=== PATIENT | male | born 1950 | race Caucasian/White ===

== ENCOUNTER 2020-12-25 10:21 | Outpatient (REF) | payer MEDICARE, SELFPAY ==
[2020-12-25 10:25] LABS: MANUAL DIFF FLAG NO
[2020-12-25 10:30] LABS: Basophils Percent Auto 0.8 % (0-2); Eosinophils Absolute Auto 0.2 X10*3/uL (0.0-0.4); Eosinophils Percent Auto 4.4 % (0-4); Hematocrit 41.1 % (42-52); Hemoglobin 13.9 g/dl (14.0-18.0); Imm Gran Abs Auto 0.01 X10*3/uL (0.00-0.03); Imm Gran Pct Auto 0.2 % (0.0-0.4); Lymphocytes Percent Auto 39.2 % (20-40); Mean Corpuscular HGB Conc 33.8 g/dl (31.0-36.0); Mean Corpuscular Volume 94.7 fL (80-98); Mean Platelet Volume 10.3 fL (9.4-12.4); Monocytes Absolute Auto 0.8 X10*3/uL (0.1-1.2); Monocytes Percent Auto 14.6 % (2-11); Neutrophils Absolute Auto 2.1 X10*3/uL (2.0-8.3); Neutrophils Percent Auto 40.8 % (45-73); Platelet Count 253 X10*3/uL (160-400); Red Blood Count 4.34 X10*6/uL (4.60-5.80); Red Cell Distribution Width 12.8 % (11.0-16.0); White Blood Count 5.2 X10*3/uL (4.8-10.8)
[2020-12-25 10:51] LABS: Alanine Aminotransferase 15 U/L (0-40); Albumin Level 4.3 g/dL (3.5-5.0); Alkaline Phosphatase 54 U/L (39-117); Anion Gap 12 (12-20); Aspartate Amino Transferase 21 U/L (5-37); Bilirubin Total 0.4 mg/dL (0.0-1.0); Blood Urea Nitrogen 13 mg/dL (9-16); Calcium 9.2 mg/dL (8.4-10.2); Carbon Dioxide 24 mmol/L (22-29); Chloride 104 mmol/L (96-108); Cholesterol 252 mg/dL; Estimated Glomerular Filt Rate > 60; Glucose Fasting 95 mg/dL (60-99); HDL Cholesterol 81 mg/dL; LDL Cholesterol Calculated 143 mg/dl; Potassium 4.3 mmol/L (3.3-5.1); Sodium 136 mmol/L (135-145); Triglycerides 144 mg/dL
[2020-12-25 10:59] LABS: Glucose Urine UA NEG (NEG); Leukocyte Esterase Urine NEG (NEG); Nitrite Urine NEG (NEG); Urine Blood TRACE (NEG); Urine Ketones 5 MG/DL (NEG); Urine Protein NEG (NEG-TRACE)
[2020-12-25 11:12] LABS: PSA,Total (Free>4and<10) 0.53 ng/mL (0.00-4.00); TSH reflex Free T4 3.11 uIU/mL (0.32-4.0)
[2020-12-25 11:20] LABS: Appearance Urine CLEAR; Color Urine YELLOW
[2020-12-25 11:56] LABS: RBC Urine 0-2 /HPF (0); WBC Urine 0-2 /HPF (0-4)
== END 2020-12-25 10:22 | disposition home or self-care (01) ==
LOC: HO.LNP 10:21
PROVIDERS: Visit Provider Internal Medicine
DX: Z00.00 Encounter for general adult medical examination without abnormal findings (principal); Z12.5 Encounter for screening for malignant neoplasm of prostate; N40.0 Benign prostatic hyperplasia without lower urinary tract symptoms; E04.1 Nontoxic single thyroid nodule; I10 Essential (primary) hypertension
CPT/HCPCS: 80053; 80061; 81001; 81003; 84153; 84443; 85025

== ENCOUNTER 2021-01-19 12:18 | Outpatient (REF) | payer MEDICARE, SELFPAY ==
--- NOTE | ~2021-01-19 | US_ITS ---
EXAMINATION: US PELVIS LIMITED (BLADDER) CLINICAL INFORMATION: Prostatism. COMPARISON: None TECHNIQUE: Real-time imaging of the bladder. FINDINGS: BLADDER: Well distended. No mass, nodule or calculus is seen. There are mild bladder wall trabeculations. There is a prostatic impression upon the bladder base. Bilateral ureteral jets are demonstrated. Prevoid bladder volume is 172 mL. Postvoid bladder volume is 13 mL. OTHER: Prostate dimensions are 5.5 x 5.0 x 5.6 cm (volume 81.6 mL). US/US bladder IMPRESSION: 1. There is prostatomegaly. 2. There is mild urinary bladder wall hypertrophy.
== END 2021-01-19 12:19 | disposition home or self-care (01) ==
LOC: HO.US 12:18
PROVIDERS: PCP Internal Medicine; Visit Provider Internal Medicine
DX: N40.0 Benign prostatic hyperplasia without lower urinary tract symptoms (principal)
CPT/HCPCS: 76857

== ENCOUNTER → 2021-03-30 07:56 | Outpatient (REF) | payer MEDICARE, SELFPAY ==
--- NOTE | 2021-03-30 08:02 | CA_ITS ---
Acquisition Time: 2021-03-30 08:03:26 Total Exercise Time: 00:09:00 Test Indications: SOB Medications: SEE CHART Protocol: AVIS Max HR: 160 BPM 108% of Pred: 148 BPM Max BP: 192/074 mmHG Max Work Load: 10.1 METS Exercise stress test with exercise 9 min of Avis protocol, acheving 10.8 MET, 108% MPHR, with mild sob, no chest discomfort, with isolated PACs mostly at baseline and in recovery at times with trigeminy and quadrigeminy pattern, with normotensive response to exercise with max BP 192/74, which is up from baseline 138/78, without EKG changes meeting criteria for ischemia. Test reviewed with Dr Jorge. Referred By: Nader Vazquez Overread By: DEBBIE CALDERON
== END ==
LOC: HO.CARD 07:56
PROVIDERS: PCP Internal Medicine; Visit Provider Internal Medicine
DX: R06.02 Shortness of breath (principal)
CPT/HCPCS: 93017

== ENCOUNTER → 2021-04-08 14:44 | Outpatient (BNVA) | payer MEDICARE, SELFPAY | PROVIDERS: PCP Internal Medicine; Referring Provider Internal Medicine; Visit Provider Internal Medicine Cardiovascular Disease | DX: R06.02 Shortness of breath (principal); I10 Essential (primary) hypertension; Z87.891 Personal history of nicotine dependence | CPT/HCPCS: 93005; Q3014 ==

== ENCOUNTER 2022-01-01 10:49 | Outpatient (REF) | payer MEDICARE, SELFPAY ==
[2022-01-01 11:01] LABS: MANUAL DIFF FLAG NO
[2022-01-01 11:27] LABS: Basophils Percent Auto 0.5 % (0-2); Eosinophils Absolute Auto 0.3 X10*3/uL (0.0-0.4); Eosinophils Percent Auto 5.1 % (0-4); Hematocrit 40.9 % (42.0-52.0); Hemoglobin 13.5 g/dl (14.0-18.0); Imm Gran Abs Auto 0.01 X10*3/uL (0.00-0.03); Imm Gran Pct Auto 0.2 % (0.0-0.4); Lymphocytes Absolute Auto 2.1 X10*3/uL (1.2-4.9); Lymphocytes Percent Auto 38.2 % (20-40); Mean Corpuscular Hemoglobin 31.5 pg (27.0-33.0); Mean Corpuscular Volume 95.6 fL (80.0-98.0); Mean Platelet Volume 10.9 fL (9.4-12.4); Monocytes Absolute Auto 0.8 X10*3/uL (0.1-1.2); Monocytes Percent Auto 15.1 % (2-11); Neutrophils Absolute Auto 2.3 x10*3/uL (2.0-8.3); Neutrophils Percent Auto 40.9 % (45-73); Platelet Count 252 X10*3/uL (160-400); Red Blood Count 4.28 X10*6/uL (4.60-5.80); Red Cell Distribution Width 12.8 % (11.0-16.0); White Blood Count 5.5 X10*3/uL (4.8-10.8)
[2022-01-01 11:36] LABS: Appearance Urine CLEAR; Color Urine YELLOW; Glucose Urine UA NEG (NEG); Leukocyte Esterase Urine NEG (NEG); Nitrite Urine NEG (NEG); PH 6.5 (5.0-8.0); Urine Blood TRACE (NEG); Urine Ketones NEG (NEG); Urine Protein NEG (NEG-TRACE)
[2022-01-01 11:39] LABS: Alanine Aminotransferase 15 U/L (0-40); Albumin Level 4.2 g/dL (3.5-5.0); Alkaline Phosphatase 47 U/L (39-117); Anion Gap 13 (12-20); Aspartate Amino Transferase 19 U/L (5-37); Bilirubin Total 0.5 mg/dL (0.0-1.0); Blood Urea Nitrogen 20 mg/dL (9-16); Calcium 9.2 mg/dL (8.4-10.2); Carbon Dioxide 26 mmol/L (22-29); Chloride 106 mmol/L (96-108); Cholesterol 264 mg/dL; Estimated Glomerular Filt Rate > 60; Glucose Fasting 91 mg/dL (60-99); HDL Cholesterol 79 mg/dL; LDL Cholesterol Calculated 173 mg/dl; Potassium 4.5 mmol/L (3.3-5.1); Sodium 140 mmol/L (135-145); Total Protein 6.7 g/dL (6.5-8.0); Triglycerides 62 mg/dL
[2022-01-01 12:01] LABS: PSA,Total (Free>4and<10) 0.66 ng/mL (0.00-4.00)
[2022-01-01 12:11] LABS: Squamous Epithelial Cell Urine TRACE /LPF; WBC Urine 0-2 /HPF (0-4)
== END 2022-01-01 10:50 | disposition home or self-care (01) ==
LOC: HO.LNP 10:49
PROVIDERS: Visit Provider Internal Medicine
DX: Z13.89 Encounter for screening for other disorder (principal)
CPT/HCPCS: 80053; 80061; 81001; 84153; 85025

== ENCOUNTER 2022-01-08 13:37 | Outpatient (REF) | payer MEDICARE, SELFPAY ==
[2022-01-08 13:50] LABS: Appearance Urine CLEAR; Color Urine YELLOW; Glucose Urine UA NEG (NEG); Leukocyte Esterase Urine NEG (NEG); Nitrite Urine NEG (NEG); PH 5.5 (5.0-8.0); Specific Gravity - Urine 1.025 (1.005-1.025); Urine Blood TRACE (NEG); Urine Ketones NEG (NEG); Urine Protein NEG (NEG-TRACE)
[2022-01-08 14:16] LABS: RBC Urine 0-2 /HPF (0); WBC Urine 0 /HPF (0-4)
== END 2022-01-08 13:38 | disposition home or self-care (01) ==
LOC: HO.LNP 13:37
PROVIDERS: Visit Provider Internal Medicine
DX: R31.9 Hematuria, unspecified (principal)
CPT/HCPCS: 81001

== ENCOUNTER 2022-03-29 13:24 | Outpatient (REF) | payer MEDICARE, SELFPAY ==
--- NOTE | ~2022-03-29 | US_ITS ---
EXAMINATION: US EXTRACRANIAL CAROTID DUPLEX, BILATERAL CLINICAL INFORMATION: This is a 72-year-old male with carotid artery disease. COMPARISON: Comparison is made to a previous study dated 02/19/2020 which demonstrated bilateral 0-49% internal carotid artery stenoses. TECHNIQUE: Real-time ultrasound and Doppler techniques (integrating B-mode 2-D vascular images, Doppler spectral analysis and color-flow Doppler imaging) were utilized to interrogate the extracranial carotid arteries, the vertebral arteries and proximal subclavian arteries bilaterally. The degree of stenosis is determined by criteria similar to NASCET. FINDINGS: Right Side: 1. There is minimal atherosclerotic plaque seen in the bifurcation/proximal ICA region. 2. The common carotid artery PSV proximally is 132 cm/s and distally 106 cm/s. 3. The proximal internal carotid artery velocities are 100 cm/s systolic and 23 cm/s diastolic. 4. The proximal external carotid artery PSV is 95 cm/s. 5. The vertebral artery shows antegrade flow. 6. The subclavian artery waveforms are normal. Left Side: 1. There is minimal atherosclerotic plaque seen in the bifurcation/proximal ICA region. 2. The common carotid artery PSV proximally is 135 cm/s and distally 119 cm/s. 3. The proximal internal carotid artery velocities are 100 cm/s systolic and 35 cm/s diastolic. 4. The proximal external carotid artery PSV is 97 cm/s. 5. The vertebral artery shows antegrade flow. 6. The subclavian artery waveforms are normal. US/US carotid duplex BI IMPRESSION: 1. RIGHT: Minimal, non-hemodynamically significant stenosis of the proximal right internal carotid artery corresponding to a 0-49% stenosis by velocity criteria. 2. LEFT: Minimal, non-hemodynamically significant stenosis of the proximal left internal carotid artery corresponding to a 0-49% stenosis by velocity criteria. 3. Incidental note is made of bilateral thyroid nodules. A dedicated thyroid ultrasound is recommended and this can be compared to the previous study from 02/19/2020. 4. There is no change in the category severity of disease when compared to the previous study dated 02/19/2020.
== END 2022-03-29 13:25 | disposition home or self-care (01) ==
LOC: HO.US 13:24
PROVIDERS: PCP Internal Medicine; Visit Provider Internal Medicine
DX: I65.23 Occlusion and stenosis of bilateral carotid arteries (principal)
CPT/HCPCS: 93880

== ENCOUNTER 2022-05-10 15:18 | Outpatient (REF) | payer MEDICARE, SELFPAY ==
--- NOTE | ~2022-05-10 | US_ITS ---
EXAMINATION: US THYROID CLINICAL INFORMATION: Thyroid nodule. COMPARISON: Thyroid ultrasound 02/19/2020. TECHNIQUE: Linear transducer grayscale and color Doppler examination with attention to the region of the thyroid. FINDINGS: SIZE: Measurements of the thyroid lobes and nodules are given in sagittal, anteroposterior and transverse dimensions respectively. Right Thyroid Lobe: 5.2 x 1.6 x 1.7 cm, volume 7.4 mL. Previously 5.2 x 1.8 x 1.6 cm, volume 7.8 mL. Parenchyma: The gland echotexture is homogeneous. Thyroid vascularity is increased. Left Thyroid Lobe: 4.7 x 1.6 x 1.6 cm, volume 6.3 mL. Previously 4.5 x 2.3 x 1.8 cm, volume 9.7 mL. Parenchyma: The gland echotexture is homogeneous. Thyroid vascularity is increased. Isthmus: 0.3 cm in maximum AP dimension. Previously 0.4 cm. Estimated total number of nodules greater than or equal to 1 cm: 1. Foot Tender nodules are described as follows: 1. Location: Right mid pole. Size: 0.5 x 0.4 x 0.5 cm, volume 0.06 mL. Previously: 0.6 x 0.5 x 0.6 cm, volume 0.09 mL. Nodule characteristics: Composition: Cystic(0). ACR TI-RADS total points: 0 ACR TI-RADS category: 1 Significant change in size (>/= 20% in 2 dimensions and minimal increase of 2 mm or 50% or greater increase in volume): None Change in features: None Change in ACR TI-RADS risk category: Not applicable. 2. Location: Right mid pole. Size: 0.4 x 0.3 x 0.3 cm, volume 0.02 mL. Previously: 0.3 x 0.3 x 0.3 cm, volume 0.01 mL. Nodule characteristics: Composition: Mixed cystic and solid (1). Echogenicity: Isoechoic (1). Shape: Not taller than wide (0). Margins: Smooth (0). Echogenic Foci: Comet-tail artifacts (0). ACR TI-RADS total points: 2 ACR TI-RADS category: 2 Significant change in size (>/= 20% in 2 dimensions and minimal increase of 2 mm or 50% or greater increase in volume): None Change in features: None Change in ACR TI-RADS risk category: Not applicable. 3. Location: Right lower pole. Size: 1.1 x 0.7 x 0.9 cm, volume 0.3 mL. Previously: 0.9 x 0.8 x 0.6 cm, volume 0.2 mL. Nodule characteristics: Composition: Solid/almost completely solid (2). Echogenicity: Isoechoic (1). Shape: Not taller than wide (0). Margins: Ill-defined (0). Echogenic Foci: Macrocalcifications (1). None ACR TI-RADS total points: 4 ACR TI-RADS category: 4 Significant change in size (>/= 20% in 2 dimensions and minimal increase of 2 mm or 50% or greater increase in volume): None Change in features: None Change in ACR TI-RADS risk category: Not applicable. 4. Location: Left lower pole. Size: 0.6 x 0.4 x 0.4 cm, volume 0.06 mL. Previously: Not documented, new. Nodule characteristics: Composition: Solid (2). Echogenicity: Isoechoic (1). Shape: Not taller than wide (0). Margins: Ill-defined (0). Echogenic Foci: None (0). ACR TI-RADS total points: 3 ACR TI-RADS category: 3 Significant change in size (>/= 20% in 2 dimensions and minimal increase of 2 mm or 50% or greater increase in volume): None Change in features: None Change in ACR TI-RADS risk category: Not applicable. NODES: No lymphadenopathy is seen in the tissue surrounding the thyroid gland. US/US thyroid IMPRESSION: 1. Slightly hypervascular nonenlarged thyroid gland. 2. Subcentimeter nonsuspicious thyroid nodules. 3. TR1 (0 point) and TR 2 (2 points): 4. TR4 (4-6 points): FNA if more than or equal to 1.5 cm in maximum dimension, followup ultrasound in 1, 2, 3 and 5 years if 1 to 1.4 cm in maximum dimension. 5. TR5 (more than or equal to 7 points): FNA if more than or equal to 1 cm in maximum dimension, followup ultrasound every year for 5 years if 0.5 to 0.9 cm in maximum dimension.
== END 2022-05-10 15:19 | disposition home or self-care (01) ==
LOC: HO.US 15:18
PROVIDERS: Visit Provider Internal Medicine
DX: E04.1 Nontoxic single thyroid nodule (principal)
CPT/HCPCS: 76536

== ENCOUNTER 2022-05-21 11:57 | Outpatient (REF) | payer MEDICARE, SELFPAY ==
[2022-05-21 12:47] LABS: Alanine Aminotransferase 15 U/L (0-40); Albumin Level 4.2 g/dL (3.5-5.0); Alkaline Phosphatase 47 U/L (39-117); Aspartate Amino Transferase 20 U/L (5-37); Bilirubin Direct 0.3 mg/dL (0.0-0.5); Bilirubin Total 0.7 mg/dL (0.0-1.0); Cholesterol 166 mg/dL; HDL Cholesterol 88 mg/dL; LDL Cholesterol Calculated 69 mg/dl; Total Protein 6.5 g/dL (6.5-8.0); Triglycerides 45 mg/dL
[2022-05-21 13:52] LABS: Reflex LDLD? No
== END 2022-05-21 11:58 | disposition home or self-care (01) ==
LOC: HO.LNP 11:57
PROVIDERS: Visit Provider Internal Medicine
DX: E78.00 Pure hypercholesterolemia, unspecified (principal)
CPT/HCPCS: 80061; 80076

== ENCOUNTER 2023-02-17 10:46 | Outpatient (REF) | payer MEDICARE, SELFPAY ==
[2023-02-17 10:52] LABS: MANUAL DIFF FLAG NO
[2023-02-17 11:16] LABS: Appearance Urine Clear; Color Urine Yellow; Glucose Urine UA Negative (Negative); Leukocyte Esterase Urine Negative (Negative); Nitrite Urine Negative (Negative); Urine Blood Negative (Negative); Urine Ketones Negative (Negative); Urine Protein Negative (Neg-Trace)
[2023-02-17 11:19] LABS: Bacteria Urine None Seen (None Seen); Hyaline Casts Urine 0-2 /LPF (0-2); RBC Urine 0-2 /HPF (0-2); Squamous Epithelial Cell Urine 0-2 /HPF (0-2); WBC Urine 0-5 /HPF (0-5)
[2023-02-17 12:04] LABS: Basophils Percent Auto 0.8 % (0-2); Eosinophils Absolute Auto 0.3 X10*3/uL (0.0-0.4); Eosinophils Percent Auto 5.7 % (0-4); Hematocrit 42.4 % (42.0-52.0); Hemoglobin 14.1 g/dl (14.0-18.0); Imm Gran Abs Auto 0.01 X10*3/uL (0.00-0.03); Imm Gran Pct Auto 0.2 % (0.0-0.4); Lymphocytes Absolute Auto 1.5 X10*3/uL (1.2-4.9); Lymphocytes Percent Auto 30.1 % (20-40); Mean Corpuscular HGB Conc 33.3 g/dl (31.0-36.0); Mean Corpuscular Volume 96.1 fL (80.0-98.0); Mean Platelet Volume 10.8 fL (9.4-12.4); Monocytes Absolute Auto 0.6 X10*3/uL (0.1-1.2); Monocytes Percent Auto 12.3 % (2-11); Neutrophils Absolute Auto 2.6 x10*3/uL (2.0-8.3); Neutrophils Percent Auto 50.9 % (45-73); Platelet Count 272 X10*3/uL (160-400); Red Blood Count 4.41 X10*6/uL (4.60-5.80); Red Cell Distribution Width 12.6 % (11.0-16.0); White Blood Count 5.1 X10*3/uL (4.8-10.8)
[2023-02-17 12:12] LABS: Alanine Aminotransferase 16 U/L (0-40); Albumin Level 4.5 g/dL (3.5-5.0); Alkaline Phosphatase 42 U/L (39-117); Anion Gap 13 (12-20); Aspartate Amino Transferase 21 U/L (5-37); Bilirubin Total 0.6 mg/dL (0.0-1.0); Blood Urea Nitrogen 20 mg/dL (9-16); Calcium 9.6 mg/dL (8.4-10.2); Carbon Dioxide 25 mmol/L (22-29); Chloride 106 mmol/L (96-108); Cholesterol 184 mg/dL (<200); Estimated Glomerular Filt Rate > 60; Glucose Fasting 93 mg/dL (60-99); HDL Cholesterol 96 mg/dL (>40); LDL Cholesterol Calculated 76 mg/dL (<100); Potassium 4.8 mmol/L (3.3-5.1); Sodium 139 mmol/L (135-145); Total Protein 7.3 g/dL (6.5-8.0); Triglycerides 60 mg/dL (<150)
[2023-02-17 12:23] LABS: PSA,Total (Free>4and<10) 0.65 ng/mL (0.00-4.00)
== END 2023-02-17 10:47 | disposition home or self-care (01) ==
LOC: HO.LNP 10:46
PROVIDERS: Visit Provider Internal Medicine
DX: Z00.00 Encounter for general adult medical examination without abnormal findings (principal); I10 Essential (primary) hypertension; N40.0 Benign prostatic hyperplasia without lower urinary tract symptoms; E78.00 Pure hypercholesterolemia, unspecified; Z12.5 Encounter for screening for malignant neoplasm of prostate
CPT/HCPCS: 80053; 80061; 81001; 84153; 85025

== ENCOUNTER 2023-05-16 07:52 | Outpatient (REF) | payer MEDICARE, SELFPAY ==
--- NOTE | ~2023-05-16 | US_ITS ---
EXAMINATION: US THYROID CLINICAL INFORMATION: Thyroid nodule. COMPARISON: Thyroid ultrasound 05/10/2022 and 02/19/2020. TECHNIQUE: Linear transducer banerjee-scale and color Doppler examination with attention to the region of the thyroid. FINDINGS: SIZE: Measurements of the thyroid lobes and nodules are given in sagittal, anteroposterior and transverse dimensions, respectively. Right Thyroid Lobe: 5.4 x 1.9 x 1.4 cm, volume 7.4 mL. Previously 5.2 x 1.6 x 1.7 cm, volume 7.4 mL. Parenchyma: The gland echotexture is homogeneous. Thyroid vascularity is normal. Left Thyroid Lobe: 4.6 x 2.4 x 1.6 cm, volume 9.0 mL. Previously 4.7 x 1.6 x 1.6 cm, volume 6.3 mL. Parenchyma: The gland echotexture is homogeneous. Thyroid vascularity is normal. Isthmus: 0.3 cm in maximum AP dimension. Previously 0.3 cm. Estimated total number of nodules greater than or equal to 1 cm: 1. Hopper Operator nodules are described as follows: 1. Location: Right mid. Size: 0.6 x 0.5 x 0.3 cm, volume 0.05 mL. Previously: 0.5 x 0.4 x 0.5 cm, volume 0.06 mL. Nodule characteristics: Composition: Mixed cystic and solid (1). Echogenicity: Hypoechoic (2). Shape: Not taller than wide (0). Margins: Smooth (0). Echogenic Foci: None (0). ACR TI-RADS total points: 3. Previous: 0. ACR TI-RADS category: 3. Previous: 1. Significant change in size (>/= 20% in 2 dimensions and minimal increase of 2 mm or 50% or greater increase in volume): No. Change in features: Yes. Change in ACR TI-RADS risk category: Yes. 2. Location: Right mid. Size: 0.3 x 0.2 x 0.2 cm, volume 0.01 mL. Previously: 0.4 x 0.3 x 0.3 cm, volume 0.02 mL. Nodule characteristics: Composition: Cystic(0). ACR TI-RADS total points: 0. Previous: 2. ACR TI-RADS category: 1. Previous: 2. Significant change in size (>/= 20% in 2 dimensions and minimal increase of 2 mm or 50% or greater increase in volume): No. Change in features: No. Change in ACR TI-RADS risk category: No. 3. Location: Right inferior. Size: 0.5 x 0.3 x 0.4 cm, volume 0.03 mL. Previously: New since the previous study. Nodule characteristics: Composition: Cystic(0). ACR TI-RADS total points: 0. ACR TI-RADS category: 1. 4. Location: Right inferior. Size: 1.3 x 0.9 x 0.8 cm, volume 0.5 mL. Previously: 1.1 x 0.7 x 0.9 cm, volume 0.3 mL. Nodule characteristics: Composition: Solid/almost completely solid (2). Echogenicity: Isoechoic (1). Shape: Not taller than wide (0). Margins: Smooth (0). Echogenic Foci: None (0). ACR TI-RADS total points: 3. Previous: 3. ACR TI-RADS category: 3. Previous: 3. Significant change in size (>/= 20% in 2 dimensions and minimal increase of 2 mm or 50% or greater increase in volume): Yes. Change in features: No. Change in ACR TI-RADS risk category: No. 5. Location: Left inferior. Size: 0.7 x 0.5 x 0.7 cm, volume 0.1 mL. Previously: 0.6 x 0.4 x 0.4 cm, volume 0.06 mL. Nodule characteristics: Composition: Solid (2). Echogenicity: Isoechoic (1). Shape: Not taller than wide (0). Margins: Ill-defined (0). Echogenic Foci: None (0). ACR TI-RADS total points: 3. Previous: 3. ACR TI-RADS category: 3. Previous: 3. Significant change in size (>/= 20% in 2 dimensions and minimal increase of 2 mm or 50% or greater increase in volume): No. Change in features: No. Change in ACR TI-RADS risk category: No. NODES: No lymphadenopathy is seen in the tissue surrounding the thyroid gland. US/US thyroid IMPRESSION: There is only a single nodule over a centimeter in size which is a 1.3 cm TR Class III nodule. According to ACR TI-RADS criteria, no follow-up should be necessary. ACR TI-RADS RECOMMENDATION REFERENCE: Ultrasound-guided fine-needle aspiration, follow up ultrasound, no further followup. * TR1 (0 point) and TR2 (2 points): No FNA or followup * TR3 (3 points): FNA if more than or equal to 2.5 cm in maximum dimension, follow up ultrasound in 1, 3 and 5 years if 1.5 to 2.4 cm in maximum dimension. * TR4 (4-6 points): FNA if more than or equal to 1.5 cm in maximum dimension, follow up ultrasound in 1, 2, 3 and 5 years if 1 to 1.4 cm in maximum dimension. * TR5 (more than or equal to 7 points): FNA if more than or equal to 1 cm in maximum dimension, follow up ultrasound every year for 5 years if 0.5 to 0.9 cm in maximum dimension. * TR3, TR4 or TR5 nodules that are below the size threshold for follow up receive no followup.
== END 2023-05-16 07:53 | disposition home or self-care (01) ==
LOC: HO.US 07:52
PROVIDERS: PCP Internal Medicine; Visit Provider Internal Medicine
DX: E04.1 Nontoxic single thyroid nodule (principal)
CPT/HCPCS: 76536

== ENCOUNTER 2023-08-26 11:28 | Outpatient (REF) | payer MEDICARE, SELFPAY ==
[2023-08-26 12:29] LABS: Alanine Aminotransferase 20 U/L (0-40); Albumin Level 4.3 g/dL (3.5-5.0); Alkaline Phosphatase 52 U/L (39-117); Aspartate Amino Transferase 21 U/L (5-37); Bilirubin Direct 0.2 mg/dL (0.0-0.5); Bilirubin Total 0.5 mg/dL (0.0-1.0); Cholesterol 173 mg/dL (<200); HDL Cholesterol 91 mg/dL (>40); LDL Cholesterol Calculated 71 mg/dL (<100); Total Protein 7.1 g/dL (6.5-8.0); Triglycerides 55 mg/dL (<150)
[2023-08-26 12:35] LABS: Reflex LDLD? No
== END 2023-08-26 11:29 | disposition home or self-care (01) ==
LOC: HO.LNP 11:28
PROVIDERS: Visit Provider Internal Medicine
DX: E78.00 Pure hypercholesterolemia, unspecified (principal)
CPT/HCPCS: 80061; 80076

== ENCOUNTER 2024-02-20 10:31 | Outpatient (REF) | payer MEDICARE, SELFPAY ==
[2024-02-20 10:40] LABS: MANUAL DIFF FLAG NO
[2024-02-20 11:03] LABS: Basophils Percent Auto 0.5 % (0-2); Eosinophils Absolute Auto 0.4 X10*3/uL (0.0-0.4); Eosinophils Percent Auto 6.7 % (0-4); Hematocrit 40.7 % (42.0-52.0); Hemoglobin 13.7 g/dl (14.0-18.0); Imm Gran Abs Auto 0.02 X10*3/uL (0.00-0.03); Imm Gran Pct Auto 0.3 % (0.0-0.4); Lymphocytes Absolute Auto 1.5 X10*3/uL (1.2-4.9); Lymphocytes Percent Auto 23.3 % (20-40); Mean Corpuscular HGB Conc 33.7 g/dl (31.0-36.0); Mean Corpuscular Hemoglobin 32.6 pg (27.0-33.0); Mean Corpuscular Volume 96.9 fL (80.0-98.0); Mean Platelet Volume 10.6 fL (9.4-12.4); Monocytes Absolute Auto 0.8 X10*3/uL (0.1-1.2); Monocytes Percent Auto 12.1 % (2-11); Neutrophils Absolute Auto 3.8 x10*3/uL (2.0-8.3); Neutrophils Percent Auto 57.1 % (45-73); Platelet Count 263 X10*3/uL (160-400); Red Cell Distribution Width 12.6 % (11.0-16.0); White Blood Count 6.6 X10*3/uL (4.8-10.8)
[2024-02-20 11:05] LABS: Appearance Urine Clear; Color Urine Yellow; Glucose Urine UA Negative (Negative); Leukocyte Esterase Urine Negative (Negative); Nitrite Urine Negative (Negative); PH 5.5 (5.0-9.0); Urine Blood Negative (Negative); Urine Ketones Negative (Negative); Urine Protein Negative (Neg-Trace)
[2024-02-20 11:08] LABS: Bacteria Urine None Seen (None Seen); Hyaline Casts Urine 0-2 /LPF (0-2); RBC Urine 0-2 /HPF (0-2); Squamous Epithelial Cell Urine 0-2 /HPF (0-2); WBC Urine 0-5 /HPF (0-5)
[2024-02-20 11:11] LABS: Alanine Aminotransferase 15 U/L (0-40); Albumin Level 4.1 g/dL (3.5-5.0); Alkaline Phosphatase 40 U/L (39-117); Anion Gap 12 (12-20); Aspartate Amino Transferase 18 U/L (5-37); Bilirubin Total 0.7 mg/dL (0.0-1.0); Blood Urea Nitrogen 24 mg/dL (9-16); Carbon Dioxide 24 mmol/L (22-29); Chloride 107 mmol/L (96-108); Cholesterol 181 mg/dL (<200); Estimated Glomerular Filt Rate > 60; Glucose Fasting 109 mg/dL (60-99); HDL Cholesterol 87 mg/dL (>40); LDL Cholesterol Calculated 79 mg/dL (<100); Potassium 4.1 mmol/L (3.3-5.1); Sodium 139 mmol/L (135-145); Total Protein 6.8 g/dL (6.5-8.0); Triglycerides 76 mg/dL (<150)
[2024-02-20 11:32] LABS: PSA,Total (Free>4and<10) 0.52 ng/mL (0.00-4.00)
== END 2024-02-20 10:32 | disposition home or self-care (01) ==
LOC: HO.LNP 10:31
PROVIDERS: Visit Provider Internal Medicine
DX: Z00.00 Encounter for general adult medical examination without abnormal findings (principal); I10 Essential (primary) hypertension; E78.00 Pure hypercholesterolemia, unspecified; Z12.5 Encounter for screening for malignant neoplasm of prostate
CPT/HCPCS: 80053; 80061; 81001; 84153; 85025

== ENCOUNTER 2024-08-17 11:35 | Outpatient (REF) | payer MEDICARE, SELFPAY ==
[2024-08-17 12:26] LABS: Alanine Aminotransferase 18 U/L (0-40); Albumin Level 4.2 g/dL (3.5-5.0); Alkaline Phosphatase 43 U/L (39-117); Aspartate Amino Transferase 24 U/L (5-37); Bilirubin Direct 0.2 mg/dL (0.0-0.5); Bilirubin Total 0.6 mg/dL (0.0-1.0); Cholesterol 165 mg/dL (<200); HDL Cholesterol 80 mg/dL (>40); LDL Cholesterol Calculated 73 mg/dL (<100); Total Protein 7.1 g/dL (6.5-8.0); Triglycerides 62 mg/dL (<150)
[2024-08-17 14:46] LABS: Reflex LDLD? No
== END 2024-08-17 11:36 | disposition home or self-care (01) ==
LOC: HO.LNP 11:35
PROVIDERS: Visit Provider Internal Medicine
DX: E78.00 Pure hypercholesterolemia, unspecified (principal)
CPT/HCPCS: 80061; 80076

== ENCOUNTER → 2024-10-11 07:45 | Outpatient (REF) | payer MEDICARE, SELFPAY ==
--- NOTE | 2024-10-11 07:48 | CA_ITS ---
Transthoracic Echocardiogram Patient (Last, First, Middle): Chaz Aguirre Carl Gender: Male Date of : 1950 Age: 74 Procedure Date: 10/11/2024 Procedure Type: Transthoracic Echocardiogram Location: OP Height: 167.64 cm Weight: 72.58 kg BSA: 1.82 m2 Heart Rate: bpm BP: 150 / 84 mmHg Incident Coordinator: TO Referring MD: Nader Vazquez MD Water Aerobics Instructor: Jake Jorge MD Symptoms: R01.1 MURMUR Study Quality: Adequate ECG Rhythm: Sinus Conclusions: - 1. Normal LV ejection fraction 55-60% with impaired relaxation filling pattern 2. Mild calcification and thickening of the aortic valve with mild mitral regurgitation 3. Normal RV systolic pressure 4. No gross pericardial effusion Findings Left Ventricle Normal left ventricular size, thickness, and systolic function. The visually estimated ejection fraction is between 55-60%. Spectral Doppler is indicative of an impaired relaxation filling pattern. Right Ventricle Normal right ventricular cavity size and systolic function. Atria The left atrium is likely dilated. There is no evidence of interatrial shunt. The right atrium is normal in size. Aortic Valve There is mild calcification of the aortic valve. There is mild thickening of the aortic valve. There is no aortic valve stenosis. There is no aortic valve regurgitation. Mitral Valve There is mild anterior and posterior mitral leaflet thickening. There is mild mitral valve regurgitation. There is no mitral valve stenosis. Pulmonic Valve The pulmonic valve is likely normal. There is trace pulmonic valve regurgitation. Tricuspid Valve Normal tricuspid valve structure. There is mild tricuspid valve regurgitation. The right ventricular systolic pressure is normal. The right ventricular systolic pressure is 25 mmHg. Normal right atrial pressure. There is no evidence of pulmonary hypertension. Great Vessels The pulmonary artery was not well visualized. There is mild dilatation of the ascending aorta measuring 3.80 cm. Venous The inferior vena cava is normal in size and collapses greater than 50% with inspiration. Pericardium/Pleural There is no evidence of pericardial effusion. Prior Study Comparison No prior study available for comparison. Measurements 2D Linear Measurements IVSd: 1.06 0.6-0.9/0.6-1.0 cm LVIDd: 4.56 3.9-5.3/4.2-5.9 cm LVIDd Index: 2.51 2.4-3.2/2.2-3.1 cm/m2 LVIDs: 2.93 2.0-3.6 cm LVPWd: 0.81 0.7-1.1 cm LA Diam: 4.10 2.7-3.8/3.0-4.0 cm LAIDs Index: 2.25 1.5-2.3 cm/m2 LV Mass: 178.26 67-162/88-224 g LV Mass Index: 97.94 43-95/49-115 g/m2 LVOT Diam: 2.30 3.0+(-)1.3 cm 2D Systolic Function EF 4C: 61.30 >55% EF 2C: 54.80 >55% EF BiP: 57.20 >55% Mitral Valve MV Pk E: 0.59 MV PK A: 0.54 MV Decel Time: 153.00 E/A: 1.10 E'Lateral: 8.16 E'Medial: 5.66 E/E' Med: 10.40 E/E' Lat: 7.20 PHT: 45.00 MVA PHT: 4.89 Decel Imperial: 3.85 Aortic Valve AoV Pk Carlos: 1.54 AoV Mn Carlos: 1.10 AoV VTI: 0.37 AoV Pk Grad: 9.00 Aov Mn Grad: 5.00 JAZZMINE Cont.VTI: 2.78 LVOT LVOT Pk Carlos: 1.12 LVOT Mn Carlos: 0.72 LVOT VTI: 0.25 LVOT Pk Grad: 5.00 LVOT Mn Grad: 2.00 LVOT Diam: 2.30 LVOT Area: 4.15 Diastolic Function MV Pk E: 0.59 MV Pk A: 0.54 E/A: 1.10 E'Medial: 5.66 E/E' Med: 10.40 E' Laterial: 8.16 E/E' Lat: 7.20 Right Ventricle TAPSE (mm): 29.30 TVS' Carlos: 13.20 Tricuspid Valve TR Pk Carlos: 2.33 TR Pk Grad: 22.00 RA Press: 3.00 RVSP: 25.00 Great Vessels Aorta Sinus of Valsalva: 3.67 2.0-3.[address] Ridge: 3.03 1.7-3.4 cm Ao Asc: 3.80 2.1-3.4 cm Updated in Other Vendor System with Status of Final Jake Jorge MD electronically signed on 10/11/2024 6:31:51 PM with status of Final
--- OUTSIDE RECORDS SUMMARY | 2024-10-11 07:48 | XMS_ITS | Patient Health Record ---
Author Organization Nader Vazquez MD Address [address] [place], [place] [phone] Care Team Providers Care New Home Sales Consultant Name Role Phone Nader Vazquez Primary Care Provider [phone] Allergies Allergen (clinical drug ingredient) Drug/Non Drug Allergy documented on EMR Reaction Allergy Type Onset Date Status High Dose Flu shot (uncoded) throat swelling Allergy Active Results Component Value Reference Range Notes Complete Blood Count Auto Di ff Reviewed date:02/20/2024 12:42:25 PM Interpretation: Performing Lab:[facility], [address] [place] [phone] Notes/Report: White Blood Count 6.6 4.8-10.8 X10*3/uL Red Blood Count 4.20 4.60-5.80 X10*6/uL Hemoglobin 13.7 14.0-18.0 g/dl Hematocrit 40.7 42.0-52.0 % Mean Corpuscular Volume 96.9 80.0-98.0 fL Mean Corpuscular Hemoglobin 32.6 27.0-33.0 pg Mean Corpuscular HGB Conc 33.7 31.0-36.0 g/dl Red Cell Distribution Width 12.6 11.0-16.0 % Platelet Count 263 160-400 X10*3/uL Mean Platelet Volume 10.6 9.4-12.4 fL Neutrophils Percent Auto 57.1 45-73 % Imm Gran Pct Auto 0.3 0.0-0.4 % Lymphocytes Percent Auto 23.3 20-40 % Monocytes Percent Auto 12.1 2-11 % Eosinophils Percent Auto 6.7 0-4 % Basophils Percent Auto 0.5 0-2 % NRBC Pct Auto 0.0 0.0-0.2 /100WBC Neutrophils Absolute Auto 3.8 2.0-8.3 x10*3/u L Imm Gran Abs Auto 0.02 0.00-0.03 X10*3/uL Lymphocytes Absolute Auto 1.5 1.2-4.9 X10*3/u L Monocytes Absolute Auto 0.8 0.1-1.2 X10*3/uL Eosinophils Absolute Auto 0.4 0.0-0.4 X10*3/u L Basophils Absolute Auto 0.0 0.0-0.2 X10*3/uL NRBC Abs Auto 0.000 0.0-0.012 X10*3/uL Comprehensive Santa. Panel Fa Reviewed date:02/20/2024 12:43:45 PM Interpretation: Performing Lab:[facility], [address] [place] [phone] Notes/Report: Sodium 139 135-145 mmol/L Potassium 4.1 3.3-5.1 mmol/L Chloride 107 96-108 mmol/L Carbon Dioxide 24 22-29 mmol/L Anion Gap 12 12-20 Blood Urea Nitrogen 24 9-16 mg/dL Creatinine 0.97 0.5-1.4 mg/dL Estimated Glomerular Filt Rate > 60 NOTE: For -Martiniquais individuals, multiply the result by 1.210. Chronic Kidney Disease: Estimated GFR < 60 mL/min/1.73m2 Severe Kidney Disease: Estimated GFR < 15 mL/min/1.73m2 Glucose Fasting 109 60-99 mg/dL A fasting glucose from 100-125 mg/dl is considered impaired (pre-diabetes). Calcium 9.0 8.4-10.2 mg/dL Bilirubin Total 0.7 0.0-1.0 mg/dL Aspartate Amino Transferase 18 5-37 U/L Alanine Aminotransferase 15 0-40 U/L Total Protein 6.8 6.5-8.0 g/dL Albumin Level 4.1 3.5-5.0 g/dL Alkaline Phosphatase 40 39-117 U/L Lipid Panel Reviewed date:02/20/2024 12:33:59 PM Interpretation: Performing Lab:[facility], [address] [place] [phone] Notes/Report: Triglycerides 76 <150 mg/dL Desirable Triglyceride: less than 150 mg/dL Borderline High Triglyceride 150-199 mg/dL High Triglyceride: 200-499 mg/dL Very High Triglyceride: greater than or equal to 5OO mg/dL Cholesterol 181 <200 mg/dL Desirable Cholesterol: less than 200 mg/dL Borderline High Cholesterol: 200-239 mg/dL High Cholesterol: greater than 239 mg/dL LDL Cholesterol Calculated 79 <100 mg/dL Desirable LDL: less than 100 mg/dL Near Optimal/Above Optimal LDL: 110-129 mg/dL Borderline High LDL: 130-159 mg/dL High LDL: 160-189 mg/dL Very High LDL: greater than or equal to 190 mg/dL HDL Cholesterol 87 >40 mg/dL Desirable HDL: greater than 40 mg/dL Note: This HDL assay may give artificially low results in patients with liver disease. PSA,Total (Free>4and<10) Reviewed date:02/20/2024 12:34:08 PM Interpretation: Performing Lab:[facility], [address] [place] [phone] Notes/Report: PSA,Total (Free>4and<10) 0.52 0.00-4.00 ng/mL A Free PSA was not performed: The percentage of Free PSA can be used to enhance the differentiation of prostate cancer from benign prostatic disease in subjects whose PSA levels are between 4.0 and 10.0 ng/mL. For subjects whose PSA levels are below 4.0 or above 10.0 ng/mL, the risk of prostate cancer is determined on the basis of the PSA alone. Therefore the % Free PSA is recommended only for those subjects whose PSA levels are between 4.0 and 10.0 ng/mL. PSA methodology: Swift Alinity i Chemiluminescent Microparticle Immunoassay (CMIA) UA ClnCatch+Micro w/rflx Cul t Reviewed date:02/20/2024 12:44:56 PM Interpretation: Performing Lab:[facility], [address] [place] [phone] Notes/Report: Urine, Clean Catch Color Urine Yellow Appearance Urine Clear PH 5.5 5.0-9.0 Glucose Urine UA Negative Negative mg/dL Urine Blood Negative Negative Specific Acworth - Urine 1.020 1.005-1.025 Urine Protein Negative Neg-Trace mg/dL Urine Ketones Negative Negative mg/dL Nitrite Urine Negative Negative Leukocyte Esterase Urine Negative Negative RBC Urine 0-2 0-2 /HPF WBC Urine 0-5 0-5 /HPF Squamous Epithelial Cell Urine 0-2 0-2 /HPF Bacteria Urine None Seen None Seen Hyaline Casts Urine 0-2 0-2 /LPF Occult Blood, Stool, Guaiac Reviewed date:02/27/2024 11:54:41 AM Interpretation:Negative Performing Lab: Notes/Report: Negative Occult Blood, Stool, Guaiac Neg Hold Gold Reviewed date:08/17/2024 12:23:08 PM Interpretation: Performing Lab:[facility], [address] [place] [phone] Notes/Report: Hold Gold See Note Specimen held untested for 24 hours; Call to request Chemistry testing. Liver Panel Reviewed date:08/18/2024 06:16:05 PM Interpretation: Performing Lab:[facility], [address] [place] [phone] Notes/Report: Bilirubin Total 0.6 0.0-1.0 mg/dL Bilirubin Direct 0.2 0.0-0.5 mg/dL Aspartate Amino Transferase 24 5-37 U/L Alanine Aminotransferase 18 0-40 U/L Total Protein 7.1 6.5-8.0 g/dL Albumin Level 4.2 3.5-5.0 g/dL Alkaline Phosphatase 43 39-117 U/L Lipid Panel with Reflex Reviewed date:08/18/2024 06:15:57 PM Interpretation: Performing Lab:[facility], [address] [place] [phone] Notes/Report: Triglycerides 62 <150 mg/dL Desirable Triglyceride: [...] low results in patients with liver disease. Reason For Referral No Information Medications Medication SIG (Take, Route, Frequency, Duration) [...] ONE TABLET BY MOUTH ONCE DAILY Active Immunizations Vaccine Route Administration Date Status Comme nts Fluarix Quadrivalent IM Intramuscular 04/12/2019 Administe red PPSV23 (Pnemovax) Unknown 11/05/2014 Administered Pt bolden d the vaccine at his old pcp. Prevnar 13 Unknown 11/05/2014 Administered Pt had the vaccine at his old pcp. TDaP Unknown 07/30/2006 Administered Pt had the vaccine at his old pcp. Shingles Unknown 06/05/2009 Administered Pt had the vaccine at his old pcp. Fluarix Quadrivalent IM Intramuscular 02/20/2020 Administe red Shingrix Unknown 07/23/2019 Administered [facility] PPSV23 (Pnemovax) IM Intramuscular 03/28/2020 Administered SARS-COV-2 Moderna Unknown 08/05/2020 Administered SARS-COV-2 Moderna Unknown 09/02/2020 Administered Fluarix Quadrivalent IM Intramuscular 03/26/2021 Administe red SARS-COV-2 Moderna Unknown 03/29/2021 Administered Fluarix Quadrivalent IM Intramuscular 02/22/2022 Administe red Fluarix Quadrivalent IM Intramuscular 02/17/2023 Administe red Fluarix Quadrivalent - 150 IM Intramuscular 02/20/2024 Administered Social History Tobacco Use: Social History Observation [...] Never (0 point) Points 4 Interpretation Positive Problems Problem Type SNOMED Code ICD Code Onset Dates Problem Status W/U Status Risk Notes Problem 028712927 Thyroid nodule (E04.1) Active confirm ed Problem 75527966 Prostatism (N40.0) Active confirmed Problem 80777188 Essential hypert ension (I10) Active confirmed Problem 345660175 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) Active confirmed Problem 19172306 Hypercholesterem ia (E78.00) Active confirmed Vital Signs Blood pressure diastolic 70 mm Hg 09/13/2024 vicky ght is up 3 pounds since 02-27-24 Height 67 in 09/13/2024 weight is up 3 pounds since 02-27-24 Blood pressure systolic 162 mm Hg 09/13/2024 weig ht is up 3 pounds since 02-27-24 Weight 168 lbs 09/13/2024 weight is up 3 pounds since 02-27-24 BMI 26.31 kg/m2 09/13/2024 weight is up 3 pounds since 02-27-24 Encounters Encounter Location Date Provider Diagnosis Nader Vazquez MD [address] [place] [id number] 02/20/2024 Nader Vazquez Blood tests for rout ine general physical examination Z00.00 ; Essential hypertension I10 ; Hypercholesteremia E78.00 and Encounter for immunization Z23 Nader Vazquez MD [address] [place] [id number] 08/17/2024 Nader Vazquez Hypercholesteremia E 78.00 Nader Vazquez MD [address] [place] [id number] 02/27/2024 Nader Vazquez Essential hypertensi on I10 ; Annual physical exam Z00.00 ; Hypercholesteremia E78.00 ; Prostatism N40.0 ; Colon cancer screening Z12.11 and Depression screening Z13.31 Nader Vazquez MD [address] [place] [id number] 09/13/2024 Nader Vazquez Essential hypertensi on I10 ; Heart murmur R01.1 and Hypercholesteremia E78.00 Nader Vazquez MD [address] [place] [address] Drive [address] [place] [id number] 07/06/2024 Nader Vazquez Hypercholesteremia E 78.00 Assessments Encounter Date Diagnosis (ICD Code) Assessment Notes Treatment Notes Treatment Clinical Notes Section Notes 02/20/2024 Blood tests for routine general physical examination (ICD-10 - Z00.00) 02/20/2024 Essential hypertensi on (ICD-10 - I10) 08/17/2024 Hypercholesteremia (ICD-10 - E78.00) 02/27/2024 Essential hypertensi on (ICD-10 - I10) doing well, will contiue current regiment 02/27/2024 Annual physical exam (ICD-10 - Z00.00) labs reviewed and discussed with patient 09/13/2024 Essential hypertensi on (ICD-10 - I10) stable, will continue current regiment 09/13/2024 Heart murmur (ICD-10 - R01.1) pending diagnotic testing 07/06/2024 Hypercholesteremia (ICD-10 - E78.00) 02/20/2024 Hypercholesteremia (ICD-10 - E78.00) 02/27/2024 Hypercholesteremia (ICD-10 - E78.00) well controlled, will continue current regiment 09/13/2024 Hypercholesteremia (ICD-10 - E78.00) stabkle, will contnue current regiment 02/20/2024 Encounter for immunization (ICD-10 - Z23) 02/27/2024 Prostatism (ICD-10 - N40.0) stable, will continue current regiment 02/27/2024 Colon cancer screeni ng (ICD-10 - Z12.11) guaiac negative 02/27/2024 Depression screening (ICD-10 - Z13.31) negative screen Plan Of Treatment Pending Test Test Name Order Date US CAROTID BILATERAL DOPPLER 02/22/2020 ECHO 09/13/2024 Colonoscopy, Screening 11/03/2020 US bladder 12/30/2020 US thyroid 03/30/2022 US thyroid 05/13/2022 CA stress test 03/26/2021 Next Appt Details Provider Name:Nader Glaser ier, 02/25/2025 07:15:00 AM, [address], [address], [place], [place], [phone], Provider Name:Nader Glaser ier, 03/04/2025 09:30:00 AM, [address], [address], [place], [place], [phone], Insurance Providers Payer Name Payer Address Payer Phone Subscriber Number Group Number Insured Name Patient Relationship to Insured Coverage Start Date Coverage End Date [employer]AGE [address] [place] [id number] [id number] Chaz Aguirre Self - patient is the insured Medical (General) History Medical History History ICD Code colonoscopy 2013. needs repe at in 5 years; Colonoscopy 06/04/2016 - repeat in 2020 (was done [facility])
--- OUTSIDE RECORDS SUMMARY | 2024-10-11 07:48 | XMS_ITS ---
Author Organization Nader Vazquez MD Address [address] [place] [phone] Care Team Providers Care Candlemaking Laborer Name Role Phone Nader Vazquez Primary Care Provider REASON FOR VISIT RF Medications Medication SIG (Take, Route, Frequency, Duration) Notes Start Date End Date Status Rosuvastatin Calcium 20 MG TAKE ONE TABL ET BY MOUTH EVERY DAY Orally Once a day for 90 days Active Encounters Encounter Location Date Provider Diagnosis Nader Vazquez MD [address] [place] [phone] 07/06/2024 Nader Vazquez Hypercholesteremia E 78.00 Assessments Encounter Date Diagnosis (ICD Code) Assessment Notes Treatment Notes Treatment Clinical Notes Section Notes 07/06/2024 Hypercholesteremia (ICD-10 - E78.00) Plan Of Treatment Medication Medication Name Sig Start Date Stop Date Notes Rosuvastatin Calcium 20 MG TAKE ONE TABL ET BY MOUTH EVERY DAY Orally Once a day for 90 days Next Appt Details Provider Name:Nader guevara, 02/25/2025 07:15:00 AM, [address] [place] [address], [address], [phone], Provider Name:Nader guevara, 03/04/2025 09:30:00 AM, [address] [place] [address], [address], [phone], Progress Notes * Chaz LAUREN CDOB:1950 (74 yo M)Acc No.[id number]:07/06/2024 Patient:?FAY, Chaz C :1950???Age:74 Y???Sex:Male Address:[address] [place] [address], [id number] * Refills? Refill Rosuvastatin Calcium Tablet, 20 MG, Orally, 90, TAKE ONE TABLET BY MOUTH EVERY DAY, Once a day, 90 days, Refills=3 * true * Date:? Generated for Otto disla/Mark/eTremingtonsmitting on:?10/11/2024 07:48 AM EDT
--- OUTSIDE RECORDS SUMMARY | 2024-10-11 07:48 | XMS_ITS ---
Author Organization Nader Vazquez MD Address [address] [place] [phone] Care Team Providers Care Restaurant Hourly Manager Name Role Phone Nader Vazquez Primary Care [...] Nader Vazquez MD [address] [place] [phone] 09/13/2024 Nader Vazquez Essential hypertensi on I10 [...] ECHO 09/13/2024 Next Appt Details Provider Name:Nader guevara, 02/25/2025 07:15:00 AM, [address] [place] [address], [address], [phone], Provider Name:Nader guevara, 03/04/2025 09:30:00 AM, [address] [place] [address], [place] [address], [place], [place], [phone], Progress Notes * Chaz LAUREN CDOB:1950 (74 yo M)Acc No.[id number]:09/13/2024 Progress Notes Patient:?Chaz LAUREN C Provider:?Nader Vazquez MD :1950???Age:74 Y???Sex:Male Mark e:09/13/2024 Address:[address] [place], [place] [phone] Subjective: * Chief Complaints: * ???6 month * HPI: ???Symptom(s):?patient is a 74 yo male here for 6 month follow up visit/ runs a mile or 2 a day. * ROS:?General/Constitutional:?Denies?Chills.?Denies?Fatigue.?Denies?Fever.?Denies?Headache.?ENT:?Denies?Sore throat.?Respiratory:?Denies?Cough.?Denies?Shortness of breath at rest.?Denies?Shortness of breath with exertion.?Cardiovascular:?Denies?Chest pain at rest.?Denies?Chest pain with exertion.?Denies?Dizziness.?Denies?Palpitations.?Denies?Shortness of breath.?Gastrointestinal:?Denies?Diarrhea.?Denies?Nausea.? * Medical History:? * Surgical History:? * Hospitalization/Major Diagno stic Procedure:? * Medications:?TakingFluoroura cil 5 % Cream APPLY EXTERNALLY TWO TIMES [...] Medication List reviewed and reconciled with the patientNot-Taking/PRN Sildenafil Citrate 100 MG Tablet 1/2 tablet as needed Orally Once a day Medication List reviewed and reconciled with the patient * Allergies:?High Dose Flu ada t: throat swellingyes[Allergies Verified] Objective: * Vitals:?Ht: 67, Wt: 168, BMI :26.31, BP:162/70, Repeat BP:130/78, Wt-k.2. weight is up 3 pounds since 02-27-24. * ???Past Orders: ???Lab:Liver Panel (Order Da te - 08/17/2024) (Collection Date & Time - 08/17/2024 07:30 AM) ? Value Reference Range ?Bilirubin Total 0.6 0.0- 1.0 - mg/dL ?Bilirubin Direct 0.2 0.0 -0.5 - mg/dL ?Aspartate Amino Transferase 24 5-37 - U/L ?Alanine Aminotransferase 18 0-40 - U/L ?Total Protein 7.1 6.5-8. 0 - g/dL ?Albumin Level 4.2 3.5-5. 0 - g/dL ?Alkaline Phosphatase 43 39-117 - U/L ???Lab:Lipid Panel with Refl ex (Order Date - 08/17/2024) (Collection Date & Time - 08/17/2024 07:30 AM) ? Value Reference Range ?Triglycerides 62 <150 - mg/dL ?Cholesterol 165 <200 - m g/dL ?LDL Cholesterol Calculated 73 <100 - mg/dL ?HDL Cholesterol 80 >40 - mg/dL * Examination: ???General Examination: ?GENERAL APPEARANCE:?alert, well hydrated, in no distress.?HEAD:?normocephalic.?SKIN:?good turgor.?HEART:?regular rate and rhythm, grade 2/6 systolic murmur at rt sternal border.?LUNGS:?no wheezes, rales, rhonchi, good air movement, clear to auscultation bilaterally.? Assessment: * Assessment: 1.?Essential hypertension - I10 (Primary)???2.?Heart murmur - R01.1???3.?Hypercholesteremia - E78.00??? Plan: * Treatment: 2.?Heart murmur?Imaging: ECHO Notes: pending diagnotic testing??3.?Hypercholesteremia? Continue Rosuvastatin Calcium Tablet, 20 MG, TAKE ONE TABLET BY MOUTH EVERY DAY, Orally, Once a day.?? Notes: stabkle, will contnue current regiment?? * Procedure Codes:? * * Sign off status: Completed true * Provider:?Nader Vazquez MD Date:?0 09/13/2024 Generated for Otto disla/Mark/eTransmitting on:?10/11/2024 07:48 AM EDT History and Physical Notes * [...]
--- OUTSIDE RECORDS SUMMARY | 2024-10-11 07:48 | XMS_ITS ---
Author Organization Nader Vazquez MD Address [address] [place], [place] [phone] Care Team Providers Care Diesel Mechanic Construction Name Role Phone Nader Vazquez Primary Care Provider Results Component Value Reference Range Notes Liver Panel Reviewed date:08/18/2024 06:16:05 PM Interpretation: Performing Lab:[facility], [address] [place] [phone] Notes/Report: Bilirubin Total 0.6 0.0-1.0 mg/dL Bilirubin Direct 0.2 0.0-0.5 mg/dL Aspartate Amino Transferase 24 5-37 U/L Alanine Aminotransferase 18 0-40 U/L Total Protein 7.1 6.5-8.0 g/dL Albumin Level 4.2 3.5-5.0 g/dL Alkaline Phosphatase 43 39-117 U/L Lipid Panel with Reflex Reviewed date:08/18/2024 06:15:57 PM Interpretation: Performing Lab:[facility], [address] [place] [phone] Notes/Report: Triglycerides 62 <150 mg/dL Desirable Triglyceride: [...] Location Date Provider Diagnosis Nader Vazquez MD [address] [place] [phone] 08/17/2024 Nader Vazquez Hypercholesteremia E 78.00 Assessments Encounter Date Diagnosis (ICD Code) Assessment Notes Treatment Notes Treatment Clinical Notes Section Notes 08/17/2024 Hypercholesteremia (ICD-10 - E78.00) Plan Of Treatment Next Appt Details Provider Name:Nader guevara, 02/25/2025 07:15:00 AM, [address] [place] [address], [address], [phone], Provider Name:Nader guevara, 03/04/2025 09:30:00 AM, [address] [place] [address], [address], [phone], Progress Notes * Chaz LAUREN CDOB:1950 (74 yo M)Acc No.[id number]:08/17/2024 Progress Note Patient:?Chaz LAUREN Provider:?Nader Vazquez MD :1950???Age:74 Y???Sex:Male Mark e:08/17/2024 Address:[address] [place], [place] [phone] Subjective: * Chief Complaints: * ???1. Fasting lipids. * Medical History:? Objective: * Vitals:? Assessment: * Assessment: 1.?Hypercholesteremia - E78. 00 (Primary)??? Plan: * Treatment: * Procedure Codes:?94356 VENIP UNCT, ROUTINE* * * The named appointment provid er may or may not be the originator of this progress note, and it is not deemed complete until electronically signed by the appointment provider. Sign off status: Pending * Provider:?Nader Vazquez MD Date:?0 08/17/2024 Generated for Printi ng/Mark/Savannahitting on:?10/11/2024 07:47 AM EDT
== END ==
LOC: HO.CARD 07:45
PROVIDERS: PCP Internal Medicine; Visit Provider Internal Medicine
DX: R01.1 Cardiac murmur, unspecified (principal)
CPT/HCPCS: 93306

== ENCOUNTER → 2024-10-11 07:48 | Outpatient (BNV) | payer MEDICARE, SELFPAY | PROVIDERS: PCP Internal Medicine; Visit Provider Internal Medicine Cardiovascular Disease | DX: I35.0 Nonrheumatic aortic (valve) stenosis (principal); I34.0 Nonrheumatic mitral (valve) insufficiency | CPT/HCPCS: 93306 ==

== ENCOUNTER 2025-02-25 10:21 | Outpatient (REF) | payer MEDICARE, SELFPAY ==
--- OUTSIDE RECORDS SUMMARY | 2022-04-01 04:10 | XMS_ITS | Continuity of Care Document ---
Author Organization [facility] cine Address [address] [place] [phone] Phone Care Team Providers Care Utility Mechanic Name Role Phone Surgery [facility] Unavailable Unava ilable Allergies, Adverse Reactions, Alerts Substance Reaction Status Criticality No Known Allergies Active No Inform ation Procedures Procedure Date Facility_[facility] No Burn, Fall, Wrong Site, Side, Or Bee ent, Procedure Patient W/O Pre Operartive IV Antibiotic Facility_[facility] No Burn, Fall, Wrong Site, Side, Or Bee ent, Procedure Patient W/O Pre Operartive IV Antibiotic Facility_[facility] Advance Directives Directive Yes / No Effective Date File Name No Information Encounters Encounter Description Practice Location Reason(s) For Visit Diagnoses Date Provider [facility], [address] [place] [address], [place], [place], [id number], tel:[phone] [place] [facility] No Information 2021 Surgery [facility]. [address] [place] [address], [id number], . tel:[phone] [facility], [address] [place] [address], [place], [place], [id number], tel:[phone] [place] [facility] No Information 2021 Surgery [facility]. [address] [place] [address], [id number], . tel:[phone] [place] [address] [facility], [place], [place], [id number], [place] tel:[phone] [place] [facility] No Information 2016 Surgery Center [facility]. [address] [place] [address], [place], [place], [id number], . tel:[phone] Family History Family Member Type Diagnosis Age At Onset No Information Payers Payer name Insurance type Covered constitution party ID Authoriza tion(s) Medicare [id number] For Life Secondary [id number] Social History Type Description Quantity Date Captured Comments Sex Male Smoking Status No Information Chief Complaint And Reason For Visit No Information History Of Present Illness Encounter Date Complaint History Of Prese nt Illness No Information Instructions Date Instruction Additional Infor mation No Information Assessments Type Assessment Date No Information
--- OUTSIDE RECORDS SUMMARY | 2024-02-27 05:30 | XMS_ITS ---
Author Organization Nader Vazquez MD Address [address] [place] [phone] Care Team Providers Care Podiatrist Orthopedic Name Role Phone Nader Vazquez Primary Care Provider Allergies Allergen (clinical drug ingredient) Drug/Non Drug Allergy documented on EMR Reaction Allergy Type Onset Date Status High Dose Flu shot (uncoded) throat swelling Allergy Active Results Component Value Reference Range Notes Occult Blood, Stool, Guaiac Reviewed date:02/27/2024 11:54:41 AM Interpretation:Negative Performing Lab: Notes/Report: Negative Occult Blood, Stool, Guaiac Neg REASON FOR VISIT ANNUAL EXAM Medications Medication SIG (Take, Route, Frequency, Duration) Notes Start Date End Date Status Tamsulosin HCl 0.4 MG TAKE ONE CAPSULE B Y MOUTH EVERY DAY Active Rosuvastatin Calcium 20 MG TAKE ONE TABLET BY MOUTH EVERY DAY Orally Once a day Active Lisinopril 20 MG TAKE 1 TABLET BY DHAVAL TH DAILY. Active Sildenafil Citrate 100 MG 1/2 tablet as needed Orally Once a day for 30 day(s) 04/19/2019 Not-Taking Fluorouracil 5 % APPLY EXTERNALLY TWO TIMES A DAY FOR 10 DAYS for 30 Active Social History Tobacco Use: Social History Observation Description Date Details (start date - stop date) Former Smoker NA - NA Tobacco Use/Smoking Question Answer Notes Patient is a former smoker How long has it been since y ou last smoked? > 10 years Additional Findings: Tobacco Non-User Fo rmer smoker, currently using no form of tobacco Alcohol Screen Question Answer Notes Did you have a drink contain ing alcohol in the past year? Yes How often did you have a dri nk containing alcohol in the past year? 4 or more times a week (4 points) How many drinks did you have on a typical day when you were drinking in the past year? 1 or 2 drinks (0 point) How often did you have 6 or more drinks on one occasion in the past year? Never (0 point) Points 4 Interpretation Positive Vital Signs Blood pressure systolic 128 mm Hg 02/27/20 24 Blood pressure diastolic 76 mm Hg 024 Height 67 in 02/27/2024 Weight 165 lbs 02/27/2024 BMI 25.84 kg/m2 02/27/2024 weight is up 6 pounds since 02-24-23 Encounters Encounter Location Date Provider Diagnosis Nader Vazquez MD [address] [place], [place] [phone] 02/27/2024 Nader Vazquez Essential hypertensi on I10 ; Annual physical exam Z00.00 ; Hypercholesteremia E78.00 ; Prostatism N40.0 ; Colon cancer screening Z12.11 and Depression screening Z13.31 Assessments Encounter Date Diagnosis (ICD Code) Assessment Notes Treatment Notes Treatment Clinical Notes Section Notes 02/27/2024 Essential hypertensi on (ICD-10 - I10) doing well, will contiue current regiment 02/27/2024 Annual physical exam (ICD-10 - Z00.00) labs reviewed and discussed with patient 02/27/2024 Hypercholesteremia (ICD-10 - E78.00) well controlled, will continue current regiment 02/27/2024 Prostatism (ICD-10 - N40.0) stable, will continue current regiment 02/27/2024 Colon cancer screeni ng (ICD-10 - Z12.11) guaiac negative 02/27/2024 Depression screening (ICD-10 - Z13.31) negative screen Plan Of Treatment Medication Medication Name Sig Start Date Stop Date Notes Tamsulosin HCl 0.4 MG TAKE ONE CAPSULE B Y MOUTH EVERY DAY Rosuvastatin Calcium 20 MG TAKE ONE TABL ET BY MOUTH EVERY DAY Orally Once a day Lisinopril 20 MG TAKE 1 TABLET BY MOUTH DAILY. Treatment Notes Assessment Notes Essential hypertension doing well, will contiue current regiment Annual physical exam labs reviewed and d iscussed with patient Hypercholesteremia well controlled, rishi l continue current regiment Prostatism stable, will continu e current regiment Colon cancer screening guaiac negative Depression screening negative screen Next Appt Details Follow Up: 1 Year, Reason: Provider Name:Nader Tony Glaser ier, 03/04/2025 09:30:00 AM, [address], [address], [place], [place], [phone], Progress Notes * Chaz LAUREN CDOB:1950 (73 yo M)Acc No.[id number]:02/27/2024 Progress Notes Patient: Chaz Monahan Provider: Rafat Vazquez MD :1950 A ge:73 Y S ex:Male Date:02/27/2024 Address:[address] [place], [place] [phone] Subjective: * Chief Complaints: * A NNUAL EXAM * HPI: D epression Screening: PHQ-9 L ittle interest or pleasure in doing things N ot at all, F eeling down, depressed, or hopeless N ot at all, T rouble falling or staying asleep, or sleeping too much N ot at all, F eeling tired or having little energy N ot at all, P oor appetite or overeating N ot at all, F eeling bad about yourself or that you are a failure, or have let yourself or your family down N ot at all, T rouble concentrating on things, such as reading the newspaper or watching television N ot at all, M oving or speaking so slowly that other people could have noticed; or the opposite, being so fidgety or restless that you have been moving around a lot more than usual N ot at all, T houghts that you would be better off or of hurting yourself in some way N ot at all, T otal Score 0 . I nterpretation and Intervention D epression Screening Findings N egative, F ollow-Up for Depression : review of PHQ-9 found negative result, no follow-up needed. C ommunication Needs: Communication Needs D oes the patient have a hearing impairment N o, D oes the patient have a vision impairment? Y es, I f yes, what is the vision impairment? G lasses, D oes the patient have a cognition impairment? N o. F all Risk: History H ave you had any falls with injury in the past year? N o, H ave you had two or more falls in the past year? N o. S SHERRON Questions: SDOH Questions I n the past year have you been worried about losing housing? N o, I n the past year have you or any family members you live with been unable to get any of the following when it was really needed? Check all that apply: N one. S ymptom(s): patient is a 73 yo male here for annual visit with review of recent labs and follow up of chronic issues. * ROS: G eneral/Constitutional: Patient denies f atigue , headache. C hange in appetite?denies. C hills d enies. F ever d enies. O phthalmologic: Blurred vision d enies. D ischarge d enies. P ain d enies. E NT: Patient denies d ecreased sense of smell , any loss of taste , sore throat. D ecreased hearing d enies. S ore throat d enies. S wollen glands d enies. E ndocrine: Cold intolerance d enies. E xcessive thirst d enies. H eat intolerance d enies. W eight loss d enies. R espiratory: Cough d enies. S hortness of breath at rest d enies. S hortness of breath with exertion d enies. W heezing d enies. C ardiovascular: Comments h ad episode of shortness of breath after a half marathon that someone told him was afib but did not have an ecg or have his pulse checked. C hest pain at rest d enies. C hest pain with exertion d enies. I rregular heartbeat d enies. S hortness of breath d enies. G astrointestinal: Abdominal pain d enies. C hange in bowel habits d enies. D iarrhea d enies. N ausea d enies. R ectal bleeding d enies. V omiting d enies . G enitourinary: Blood in urine d enies. D ifficulty urinating d enies. F requent urination d enies. M usculoskeletal: Patient denies m uscle aches. P ainful joints d enies. W eakness d enies. P eripheral Vascular: Patient denies r ed and blue toes. S kin: Dry skin d enies. I tching d enies. D enies?Mole(s), changes in moles, new moles or any lesions of concern. D enies P hotosensitivity. R jorge d enies. N eurologic: Dizziness d enies. F ainting d enies. H eadache?denies. * Medical History: * Surgical History: * Hospitalization/Major Diagno stic Procedure: * Family History: F ather: 92 yrs. M other: 91 yrs. 4 sister(s) . 2 daughter(s) . .? 1 brother at 37 suicide by alcohol, Yes brother who was biploar and abused alcohol., Denies mental health/substance abuse family history, Denies mental health/substance abuse family history, Denies mental health/substance abuse family history. * Social History: T obacco Use: T obacco Use/Smoking P atient is a f ormer smoker, H ow long has it been since you last smoked? > 10 years, A dditional Findings: Tobacco Non-User F ormer smoker, currently using no form of tobacco. D rugs/Alcohol: A lcohol Screen D id you have a drink containing alcohol in the past year? Y es, H ow often did you have a drink containing alcohol in the past year? 4 or more times a week (4 points), H ow many drinks did you have on a typical day when you were drinking in the past year? 1 or 2 drinks (0 point), H ow often did you have 6 or more drinks on one occasion in the past year? N ever (0 point), P oints 4 , I nterpretation P ositive. M iscellaneous: C affeine: 3-4 cups per day. Children: yes. Exercise: yes, 7 days a week, jogging and weight lifting. Living with: spouse. Marital status: . Occupation: retired. Pets: none. no Travel outside of the [place]. * Medications: T akingLisinopril 20 MG Tablet TAKE 1 TABLET BY MOUTH DAILY. Rosuvastatin Calcium 20 MG Tablet TAKE ONE TABLET BY MOUTH EVERY DAY Orally Once a dayFluorouracil 5 % Cream APPLY EXTERNALLY TWO TIMES A DAY FOR 10 DAYS Tamsulosin HCl 0.4 MG Capsule TAKE ONE CAPSULE BY MOUTH EVERY DAY Taking Lisinopril 20 MG Tablet TAKE 1 TABLET BY MOUTH DAILY. Taking Rosuvastatin Calcium 20 MG Tablet TAKE ONE TABLET BY MOUTH EVERY DAY Orally Once a dayTaking Fluorouracil 5 % Cream APPLY EXTERNALLY TWO TIMES A DAY FOR 10 DAYS Taking Tamsulosin HCl 0.4 MG Capsule TAKE ONE CAPSULE BY MOUTH EVERY DAY Not-Taking/PRNSildenafil Citrate 100 MG Tablet 1/2 tablet as needed Orally Once a dayMedication List reviewed and reconciled with the patientNot-Taking/PRN Sildenafil Citrate 100 MG Tablet 1/2 tablet as needed Orally Once a dayMedication List reviewed and reconciled with the patient * Allergies: H igh Dose Flu shot: throat swellingyes[Allergies Verified] Objective: * Vitals: H t: 67, Wt:165, BMI:25.84, BP:128/76 weight is up 6 pounds since 02-24-23. * P ast Orders: L ab:Complete Blood Count Auto Diff (Order Date - 02/20/2024) (Collection Date - 02/20/2024) Value Reference Range White Blood Count 6.6 4.8-10.8 - X10*3/uL Red Blood Count 4.20 L 4.60-5.80 - X10*6/uL Hemoglobin 13.7 L 14.0-18.0 - g/dl Hematocrit 40.7 L 42.0-52.0 - % Mean Corpuscular Volume 96.9 80.0-98.0 - fL Mean Corpuscular Hemoglobin 32.6 27.0-33.0 - pg Mean Corpuscular HGB Conc 33.7 31.0-36.0 - g/ dl Red Cell Distribution Width 12.6 11.0-16.0 - % Platelet Count 263 160-400 - X10*3/uL Mean Platelet Volume 10.6 9.4-12.4 - fL Neutrophils Percent Auto 57.1 45-73 - % Imm Gran Pct Auto 0.3 0.0-0.4 - % Lymphocytes Percent Auto 23.3 20-40 - % Monocytes Percent Auto 12.1 H 2-11 - % Eosinophils Percent Auto 6.7 H 0-4 - % Basophils Percent Auto 0.5 0-2 - % NRBC Pct Auto 0.0 0.0-0.2 - /100WBC Neutrophils Absolute Auto 3.8 2.0-8.3 - x10* 3/uL Imm Gran Abs Auto 0.02 0.00-0.03 - X10*3/uL Lymphocytes Absolute Auto 1.5 1.2-4.9 - X10* 3/uL Monocytes Absolute Auto 0.8 0.1-1.2 - X10*3/ uL Eosinophils Absolute Auto 0.4 0.0-0.4 - X10* 3/uL Basophils Absolute Auto 0.0 0.0-0.2 - X10*3/ uL NRBC Abs Auto 0.000 0.0-0.012 - X10*3/uL L ab:Comprehensive [place]ons. Panel Fast (Order Date - 02/20/2024) (Collection Date - 02/20/2024) Value Reference Range Sodium 139 135-145 - mmol/L Bilirubin Total 0.7 0.0-1.0 - mg/dL Aspartate Amino Transferase 18 5-37 - U/L Alanine Aminotransferase 15 0-40 - U/L Total Protein 6.8 6.5-8.0 - g/dL Albumin Level 4.1 3.5-5.0 - g/dL Alkaline Phosphatase 40 39-117 - U/L Potassium 4.1 3.3-5.1 - mmol/L Chloride 107 96-108 - mmol/L Carbon Dioxide 24 22-29 - mmol/L Anion Gap 12 12-20 - Blood Urea Nitrogen 24 H 9-16 - mg/dL Creatinine 0.97 0.5-1.4 - mg/dL Estimated Glomerular Filt Rate > 60 - Glucose Fasting 109 H 60-99 - mg/dL Calcium 9.0 8.4-10.2 - mg/dL L ab:Lipid Panel (Order Date - 02/20/2024) (Collection Date - 02/20/2024) Value Reference Range Triglycerides 76 <150 - mg/dL Cholesterol 181 <200 - mg/dL LDL Cholesterol Calculated 79 <100 - mg/dL HDL Cholesterol 87 >40 - mg/dL L ab:PSA,Total (Free>4and<10) (Order Date - 02/20/2024) (Collection Date - 02/20/2024) Value Reference Range PSA,Total (Free>4and<10) 0.52 0.00-4.00 - ng/ mL L ab:UA ClnCatch+Micro w/rflx Cult (Order Date - 02/20/2024) (Collection Date - 02/20/2024) Value Reference Range Color Urine Yellow - Appearance Urine Clear - PH 5.5 5.0-9.0 - Glucose Urine UA Negative Negative - mg/dL Urine Blood Negative Negative - Specific Alexander - Urine 1.020 1.005-1.025 - Urine Protein Negative Neg-Trace - mg/dL Urine Ketones Negative Negative - mg/dL Nitrite Urine Negative Negative - Leukocyte Esterase Urine Negative Negative - RBC Urine 0-2 0-2 - /HPF WBC Urine 0-5 0-5 - /HPF Squamous Epithelial Cell Urine 0-2 0-2 - /HP F Bacteria Urine None Seen None Seen - Hyaline Casts Urine 0-2 0-2 - /LPF * Examination: G eneral Examination: GENERAL APPEARANCE: w ell developed, well nourished, in no acute distress. HEAD: n ormocephalic, atraumatic. EYES: p upils equal, round, reactive to light and accommodation, sclera non-icteric. EARS: n ormal. ORAL CAVITY: m ucosa moist. THROAT: c lear. NECK/THYROID: n monty supple, full range of motion, no cervical lymphadenopathy, no bruits. SKIN: w arm and dry, no suspicious lesions. HEART: r egular rate and rhythm, S1, S2 normal, no murmurs.? LUNGS: c lear to auscultation bilaterally. ABDOMEN: s oft, nontender, nondistended, bowel sounds present, normal, no organomegaly , no masses palpable. RECTAL EXAM: n ormal tone, no external hemorrhoids, no masses palpable, prostate normal, stool guaiac negative. MALE GENITOURINARY: c ircumcised, no penile lesions or discharge, testes descended bilaterally. EXTREMITIES: n o clubbing, cyanosis, or edema. NEUROLOGIC: n onfocal, motor strength normal upper and lower extremities, sensory exam intact. Assessment: * Assessment: 1. A nnual physical exam - Z00.00 (Primary) 2 . E ssential hypertension - I10 3 .?Hypercholesteremia - E78.00 4 . P rostatism - N40.0 5 . C olon cancer screening - Z12.11 6 . D epression screening - Z13.31 Plan: * Treatment: 2. E ssential hypertension Continue Lisinopril Tablet, 20 MG, TAKE 1 TABLET BY MOUTH DAILY.. Notes: doing well, will contiue current regiment 3. H ypercholesteremia Continue Rosuvastatin Calcium Tablet, 20 MG, TAKE ONE TABLET BY MOUTH EVERY DAY, Orally, Once a day. Notes: well controlled, will continue current regiment 4. P rostatism Continue Tamsulosin HCl Capsule, 0.4 MG, TAKE ONE CAPSULE BY MOUTH EVERY DAY. Notes: stable, will continue current regiment 5. C olon cancer screening L AB: Occult Blood, Stool, Guaiac N egative Value Reference Range O ccult Blood, Stool, Guaiac Neg Notes: guaiac negative??6.?Depression screening? Notes: negative screen?? * Procedure Codes: 8 2270 TEST FOR BLOOD, FECES * Follow Up: 1 Year * * Sign off status: Completed true * Provider: Rafat Vazquez MD Date: 0 02/27/2024 Generated for Otto disla/Mark/Remasmitting on: 0 02/25/2025 11:35 AM EDT History and Physical Notes * HPI (History of Present Illness) Category Sub-Category Detail Notes Category Not es Symptom(s) patient is a 73 yo male here for annual visit with review of recent labs and follow up of chronic issues. Depression Screening PHQ-9 Little inte rest or pleasure in doing things: Not at all Feeling down, depressed, or hopeless: No t at all Trouble falling or staying asleep, or sl eeping too much: Not at all Feeling tired or having little energy: N ot at all Poor appetite or overeating: Not at all Feeling bad about yourself o r that you are a failure, or have let yourself or your family down: Not at all Trouble concentrating on thi ngs, such as reading the newspaper or watching television: Not at all Moving or speaking so slowly that other people could have noticed; or the opposite, being so fidgety or restless that you have been moving around a lot more than usual: Not at all Thoughts that you would be b steven off or of hurting yourself in some way: Not at all Total Score: 0 Interpretation and Intervention Depression Doug espinoza Findings: Negative Follow-Up for Depression: : review of PH Q-9 found negative result, no follow-up needed SDOH Questions SDOH Questions In the past year have you been worried about losing housing?: No In the past year have you or any family members you live with been unable to get any of the following when it was really needed? Check all that apply:: None Fall Risk History Have you had any falls with injury i n the past year?: No Have you had two or more falls in the st year?: No Communication Needs Communication Needs Does the patient have a hearing impairment: No Does the patient have a vision impairmen t?: Yes If yes, what is the vision impairment?: Glasses Does the patient have a cognition impair ment?: No Examination Category Sub-Category Detail Notes Category Not es General Examination GENERAL APPEARANCE: well dev eloped, well nourished, in no acute distress HEAD: normocephalic, atrau matic EYES: pupils equal, round, reactive to light and accommodation, sclera non-icteric EARS: normal THROAT: clear NECK/THYROID: neck supple, full ra nge of motion, no cervical lymphadenopathy, no bruits HEART: regular rate and rhy thm, S1, S2 normal, no murmurs LUNGS: clear to auscultatio n bilaterally ABDOMEN: soft, nontender, non distended, bowel sounds present, normal, no organomegaly , no masses palpable NEUROLOGIC: nonfocal, motor stre ngth normal upper and lower extremities, sensory exam intact SKIN: warm and dry, no mykel picious lesions EXTREMITIES: no clubbing, cyanosi s, or edema MALE GENITOURINARY: circumcised, no peni le lesions or discharge, testes descended bilaterally RECTAL EXAM: normal tone, no exte rnal hemorrhoids, no masses palpable, prostate normal, stool guaiac negative ORAL CAVITY: mucosa moist
--- OUTSIDE RECORDS SUMMARY | 2024-07-06 09:48 | XMS_ITS ---
Author Organization Nader Vazquez MD Address [address] [place] [phone] Care Team Providers Care Keeper Helper Name Role Phone Nader Vazquez Primary Care Provider REASON FOR VISIT RF Medications Medication SIG (Take, Route, Frequency, Duration) Notes Start Date End Date Status Rosuvastatin Calcium 20 MG TAKE ONE TABL ET BY MOUTH EVERY DAY Orally Once a day for 90 days Active Encounters Encounter Location Date Provider Diagnosis Nader Vazquez MD [address] [place] [phone] 07/06/2024 Nader Vazquez Hypercholesteremia E 78.00 Assessments Encounter Date Diagnosis (ICD Code) Assessment Notes Treatment Notes Treatment Clinical Notes Section Notes 07/06/2024 Hypercholesteremia (ICD-10 - E78.00) Plan Of Treatment Medication Medication Name Sig Start Date Stop Date Notes Rosuvastatin Calcium 20 MG TAKE ONE TABL ET BY MOUTH EVERY DAY Orally Once a day for 90 days Next Appt Details Provider Name:Nader guevara, 03/04/2025 09:30:00 AM, [address] [place] [address], [address], [phone], Progress Notes * Chaz LAUREN CDOB:1950 (74 yo M)Acc No.[id number]:07/06/2024 Patient: Kely Chaz KAPADIA :1950 A ge:74 Y S ex:Male Address:[address] [place], [address] * Refills Refill Rosuvastatin Calcium Tablet, 20 MG, Orally, 90, TAKE ONE TABLET BY MOUTH EVERY DAY, Once a day, 90 days, Refills=3 * true * Date: Generated for Otto disla/Mark/Tuan on: 0 02/25/2025 11:35 AM EDT
--- OUTSIDE RECORDS SUMMARY | 2024-08-17 03:30 | XMS_ITS ---
Author Organization Nader Vazquez MD Address [address] [place], [place] [phone] Care Team Providers Care Payroll Technician Name Role Phone Nader Vazquez Primary Care Provider [phone] Results Component Value Reference Range Notes Liver Panel Reviewed date:08/18/2024 06:16:05 PM Interpretation: Performing Lab:[facility], [address] [place] [phone] Notes/Report: Bilirubin Total 0.6 0.0-1.0 mg/dL Bilirubin Direct 0.2 0.0-0.5 mg/dL Aspartate Amino Transferase 24 5-37 U/L Alanine Aminotransferase 18 0-40 U/L Total Protein 7.1 6.5-8.0 g/dL Albumin Level 4.2 3.5-5.0 g/dL Alkaline Phosphatase 43 39-117 U/L Lipid Panel with Reflex Reviewed date:08/18/2024 06:15:57 PM Interpretation: Performing Lab:[facility], [address] [place] [phone] Notes/Report: Triglycerides 62 <150 mg/dL Desirable Triglyceride: less than 150 mg/dL Borderline High Triglyceride 150-199 mg/dL High Triglyceride: 200-499 mg/dL Very High Triglyceride: greater than or equal to 5OO mg/dL Cholesterol 165 <200 mg/dL Desirable Cholesterol: less than 200 mg/dL Borderline High Cholesterol: 200-239 mg/dL High Cholesterol: greater than 239 mg/dL LDL Cholesterol Calculated 73 <100 mg/dL Desirable LDL: less than 100 mg/dL Near Optimal/Above Optimal LDL: 110-129 mg/dL Borderline High LDL: 130-159 mg/dL High LDL: 160-189 mg/dL Very High LDL: greater than or equal to 190 mg/dL HDL Cholesterol 80 >40 mg/dL Desirable HDL: greater than 40 mg/dL Note: This HDL assay may give artificially low results in patients with liver disease. REASON FOR VISIT fasting lipids Encounters Encounter Location Date Provider Diagnosis Nader Vazquez MD [address] [place] [address] [place] [phone] 08/17/2024 Nader Vazquez Hypercholesteremia E 78.00 Assessments Encounter Date Diagnosis (ICD Code) Assessment Notes Treatment Notes Treatment Clinical Notes Section Notes 08/17/2024 Hypercholesteremia (ICD-10 - E78.00) Plan Of Treatment Next Appt Details Provider Name:Nader Glaser ier, 03/04/2025 09:30:00 AM, [address] [place] [address], Suite [facility], [place], [place], [phone], Progress Notes * SUADKarl Lanehen CDOB:1950 (74 yo M)Acc No.[id number]:08/17/2024 Progress Note Patient: Chaz VALADEZ Provider: Rafat Vazquez MD :1950 A ge:74 Y S ex:Male Date:08/17/2024 Address:[address] [place], [place] [phone] Subjective: * Chief Complaints: * 1 . Fasting lipids. * Medical History: Objective: * Vitals: Assessment: * Assessment: 1. H ypercholesteremia - E78.00 (Primary) Plan: * Treatment: * Procedure Codes: 3 6415 VENIPUNCT, ROUTINE* * * The named appointment provid er may or may not be the originator of this progress note, and it is not deemed complete until electronically signed by the appointment provider. Sign off status: Pending * Provider: Rafat Vazquez MD Date: 0 08/17/2024 Generated for Otto disla/Mark/Savannahitting on: 0 02/25/2025 11:34 AM EDT
--- OUTSIDE RECORDS SUMMARY | 2024-09-13 06:00 | XMS_ITS ---
Author Organization Nader Vazquez MD Address [address] [place] [phone] Care Team Providers Care Batch Trucker Name Role Phone Nader Vazquez Primary Care Provider Allergies Allergen (clinical drug ingredient) Drug/Non Drug Allergy documented on EMR Reaction Allergy Type Onset Date Status High Dose Flu shot (uncoded) throat swelling Allergy Active REASON FOR VISIT 6 month Medications Medication SIG (Take, Route, Frequency, Duration) Notes Start Date End Date Status Sildenafil Citrate 100 MG 1/2 tablet as needed Orally Once a day for 30 day(s) 04/19/2019 Not-Taking Tamsulosin HCl 0.4 MG TAKE ONE CAPSULE B Y MOUTH EVERY DAY Active Fluorouracil 5 % APPLY EXTERNALLY TWO TIMES A DAY FOR 10 DAYS for 30 Active Rosuvastatin Calcium 20 MG TAKE ONE TABLET BY MOUTH EVERY DAY Orally Once a day Active Lisinopril 20 MG TAKE ONE TABLET BY MOUTH ONCE DAILY Active Vital Signs Blood pressure systolic 162 mm Hg 09/14/19 25 Blood pressure diastolic 70 mm Hg 025 Height 67 in 09/13/2024 Weight 168 lbs 09/13/2024 BMI 26.31 kg/m2 09/13/2024 weight is up 3 pounds since 02-27-24 Encounters Encounter Location Date Provider Diagnosis Nader Vazquez MD [address] [place] [phone] 09/13/2024 Nader Vazquez Essential hypertensi on I10 ; Heart murmur R01.1 and Hypercholesteremia E78.00 Assessments Encounter Date Diagnosis (ICD Code) Assessment Notes Treatment Notes Treatment Clinical Notes Section Notes 09/13/2024 Essential hypertensi on (ICD-10 - I10) stable, will continue current regiment 09/13/2024 Heart murmur (ICD-10 - R01.1) pending diagnotic testing 09/13/2024 Hypercholesteremia (ICD-10 - E78.00) stabkle, will contnue current regiment Plan Of Treatment Medication Medication Name Sig Start Date Stop Date Notes Rosuvastatin Calcium 20 MG TAKE ONE TABL ET BY MOUTH EVERY DAY Orally Once a day Lisinopril 20 MG TAKE ONE TABLET BY M OUTH ONCE DAILY Treatment Notes Assessment Notes Essential hypertension stable, will cont inue current regiment Heart murmur pending diagnotic te sting Hypercholesteremia stabkle, will contnu e current regiment Pending Test Test Name Order Date ECHO 09/13/2024 Next Appt Details Provider Name:Nader Glaser ier, 03/04/2025 09:30:00 AM, [address] [place] [address], [address], [phone], Progress Notes * LEONIDAS Chaz CDOB:1950 (74 yo M)Acc No.[id number]:09/13/2024 Progress Notes Patient: Chaz VALADEZ C Provider: Rafat Vazquez MD :1950 A ge:74 Y S ex:Male Date:09/13/2024 Address:[address] [place], [place] [phone] Subjective: * Chief Complaints: * 6 month * HPI: S ymptom(s): patient is a 74 yo male here for 6 month follow up visit/ runs a mile or 2 a day. * ROS: G eneral/Constitutional: Denies C hills. D enies F atigue. D enies F ever. D enies H eadache. E NT: Denies S ore throat. R espiratory: Denies C ough. D enies S hortness of breath at rest. D enies S hortness of breath with exertion. C ardiovascular: Denies C hest pain at rest. D enies C hest pain with exertion. D enies D izziness. D enies P alpitations. D enies S hortness of breath. G astrointestinal: Denies D iarrhea. D enies N ausea. * Medical History: * Surgical History: * Hospitalization/Major Diagno stic Procedure: * Medications: T akingFluorouracil 5 % Cream APPLY EXTERNALLY TWO TIMES A DAY FOR 10 DAYS Tamsulosin HCl 0.4 MG Capsule TAKE ONE CAPSULE BY MOUTH EVERY DAY Lisinopril 20 MG Tablet TAKE ONE TABLET BY MOUTH ONCE DAILY Rosuvastatin Calcium 20 MG Tablet TAKE ONE TABLET BY MOUTH EVERY DAY Orally Once a day Taking Fluorouracil 5 % Cream APPLY EXTERNALLY TWO TIMES A DAY FOR 10 DAYS Taking Tamsulosin HCl 0.4 MG Capsule TAKE ONE CAPSULE BY MOUTH EVERY DAY Taking Lisinopril 20 MG Tablet TAKE ONE TABLET BY MOUTH ONCE DAILY Taking Rosuvastatin Calcium 20 MG Tablet TAKE ONE TABLET BY MOUTH EVERY DAY Orally Once a day Not-Taking/PRNSildenafil Citrate 100 MG Tablet 1/2 tablet as needed Orally Once a day Medication List reviewed and reconciled with the patientNot- Taking/PRN Sildenafil Citrate 100 MG Tablet 1/2 tablet as needed Orally Once a day Medication List reviewed and reconciled with the patient * Allergies: H igh Dose Flu shot: throat swellingyes[Allergies Verified] Objective: * Vitals: H t: 67, Wt: 168, BMI:26.31, BP:162/70, Repeat BP:130/78, Wt-k.2. weight is up 3 pounds since 02-27-24. * P ast Orders: L ab:Liver Panel (Order Date - 08/17/2024) (Collection Date & Time - 08/17/2024 07:30 AM) Value Reference Range Bilirubin Total 0.6 0.0-1.0 - mg/dL Bilirubin Direct 0.2 0.0-0.5 - mg/dL Aspartate Amino Transferase 24 5-37 - U/L Alanine Aminotransferase 18 0-40 - U/L Total Protein 7.1 6.5-8.0 - g/dL Albumin Level 4.2 3.5-5.0 - g/dL Alkaline Phosphatase 43 39-117 - U/L L ab:Lipid Panel with Reflex (Order Date - 08/17/2024) (Collection Date & Time - 08/17/2024 07:30 AM) Value Reference Range Triglycerides 62 <150 - mg/dL Cholesterol 165 <200 - mg/dL LDL Cholesterol Calculated 73 <100 - mg/dL HDL Cholesterol 80 >40 - mg/dL * Examination: G eneral Examination: GENERAL APPEARANCE: a lert, well hydrated, in no distress.? HEAD: n ormocephalic. SKIN: g ood turgor. HEART: r egular rate and rhythm, grade 2/6 systolic murmur at rt sternal border. LUNGS: n o wheezes, rales, rhonchi, good air movement, clear to auscultation bilaterally. Assessment: * Assessment: 1. E ssential hypertension - I10 (Primary) 2 . H eart murmur - R01.1 ? 3 . H ypercholesteremia - E78.00 Plan: * Treatment: 2. H eart murmur I maging: ECHO Notes: pending diagnotic testing??3.?Hypercholesteremia? Continue Rosuvastatin Calcium Tablet, 20 MG, TAKE ONE TABLET BY MOUTH EVERY DAY, Orally, Once a day.?? Notes: stabkle, will contnue current regiment?? * Procedure Codes: * * Sign off status: Completed true * Provider: Rafat Vazquez MD Date: 0 09/13/2024 Generated for Otto disla/Mark/Savannahitting on: 0 02/25/2025 11:34 AM EDT History and Physical Notes * HPI (History of Present Illness) Category Sub-Category Detail Notes Category Not es Symptom(s) patient is a 74 yo male here for 6 month follow up visit/ runs a mile or 2 a day. Examination Category Sub-Category Detail Notes Category Not es General Examination GENERAL APPEARANCE: alert, w ell hydrated, in no distress HEAD: normocephalic HEART: regular rate and rhy thm, grade 2/6 systolic murmur at rt sternal border LUNGS: no wheezes, rales, r honchi, good air movement, clear to auscultation bilaterally SKIN: good turgor
--- OUTSIDE RECORDS SUMMARY | 2025-02-25 03:15 | XMS_ITS ---
Author Organization Nader Vazquez MD Address [address] [place], [place] [phone] Care Team Providers Care Travel Physical Therapist Name Role Phone Nader Vazquez Primary Care Provider Results Component Value Reference Range Notes Complete Blood Count Auto Di ff (Not yet reviewed by provider) Interpretation: Performing Lab:[facility], [address] [place] [phone] Notes/Report: White Blood Count 5.5 4.8-10.8 X10*3/uL Red Blood Count 4.40 4.60-5.80 X10*6/uL Hemoglobin 14.0 14.0-18.0 g/dl Hematocrit 42.4 42.0-52.0 % Mean Corpuscular Volume 96.4 80.0-98.0 fL Mean Corpuscular Hemoglobin 31.8 27.0-33.0 pg Mean Corpuscular HGB Conc 33.0 31.0-36.0 g/dl Red Cell Distribution Width 12.7 11.0-16.0 % Platelet Count 260 160-400 X10*3/uL Mean Platelet Volume 10.4 9.4-12.4 fL Neutrophils Percent Auto 52.2 45-73 % Imm Gran Pct Auto 0.2 0.0-0.4 % Lymphocytes Percent Auto 28.6 20-40 % Monocytes Percent Auto 13.7 2-11 % Eosinophils Percent Auto 4.6 0-4 % Basophils Percent Auto 0.7 0-2 % NRBC Pct Auto 0.0 0.0-0.2 /100WBC Neutrophils Absolute Auto 2.9 2.0-8.3 x10*3/u L Imm Gran Abs Auto 0.01 0.00-0.03 X10*3/uL Lymphocytes Absolute Auto 1.6 1.2-4.9 X10*3/u L Monocytes Absolute Auto 0.8 0.1-1.2 X10*3/uL Eosinophils Absolute Auto 0.3 0.0-0.4 X10*3/u L Basophils Absolute Auto 0.0 0.0-0.2 X10*3/uL NRBC Abs Auto 0.000 0.0-0.012 X10*3/uL UA ClnCatch+Micro w/rflx Cul t (Not yet reviewed by provider) Interpretation: Performing Lab:[facility], [address] [place] [phone] Notes/Report: Urine, Clean Catch Color Urine Yellow Appearance Urine Clear PH 5.0 5.0-9.0 Glucose Urine UA Negative Negative mg/dL Urine Blood Negative Negative Specific [place] - Urine 1.020 1.005-1.025 Urine Protein Negative Neg-Trace mg/dL Urine Ketones Negative Negative mg/dL Nitrite Urine Negative Negative Leukocyte Esterase Urine Negative Negative RBC Urine 0-2 0-2 /HPF WBC Urine 0-5 0-5 /HPF Squamous Epithelial Cell Urine 0-2 0-2 /HPF Bacteria Urine None Seen None Seen Hyaline Casts Urine 0-2 0-2 /LPF REASON FOR VISIT fasting yearly labs Immunizations Vaccine Route Administration Date Status Comme nts Fluarix Quadrivalent - 150 IM Intramuscular 02/25/2025 Adm inistered Encounters Encounter Location Date Provider Diagnosis Nader Vazquez MD [address] [facility] [address] [place], [place] [phone] 02/25/2025 Nader Vazquez Blood tests for rout ine general physical examination Z00.00 ; Essential hypertension I10 ; Thyroid nodule E04.1 ; Prostatism N40.0 ; Hypercholesteremia E78.00 and Encounter for administration of vaccine Z23 Assessments Encounter Date Diagnosis (ICD Code) Assessment Notes Treatment Notes Treatment Clinical Notes Section Notes 02/25/2025 Blood tests for routine general physical examination (ICD-10 - Z00.00) 02/25/2025 Essential hypertensi on (ICD-10 - I10) 02/25/2025 Thyroid nodule (ICD- 10 - E04.1) 02/25/2025 Prostatism (ICD-10 - N40.0) 02/25/2025 Hypercholesteremia (ICD-10 - E78.00) 02/25/2025 Encounter for administration of vaccine (ICD-10 - Z23) Plan Of Treatment Pending Test Test Name Order Date Complete Blood Count Auto Diff Comprehensive [place]. Panel Fast Lipid Panel 02/25/2025 PSA,Total (Free>4and<10) 02/25/2025 TSH reflex Free T4 02/25/2025 UA ClnCatch+Micro w/rflx Cult 02/25/2025 Next Appt Details Provider Name:Nader Glaser ier, 03/04/2025 09:30:00 AM, [address] [place] [address], [address], [place], [place], [phone], Progress Notes * LEONIDAS Chaz CDOB:1950 (74 yo M)Acc No.[id number]:02/25/2025 Progress Note Patient: Chaz VALADEZ Provider: Rafat Vazquez MD :1950 A ge:74 Y S ex:Male Date:02/25/2025 Address:[address] [place], [place] [phone] Subjective: * Chief Complaints: * 1 . Fasting yearly labs. * Medical History: Objective: * Vitals: Assessment: * Assessment: 1. B lood tests for routine general physical examination - Z00.00 (Primary) 2 .?Essential hypertension - I10 3 . T hyroid nodule - E04.1 4 . P rostatism - N40.0 5 . H ypercholesteremia - E78.00 6 . Encounter for administration of vaccine - Z23 Plan: * Treatment: 2. E ssential hypertension L AB: Complete Blood Count Auto Diff (Collection Date & Time - 02/25/2025 07:15 AM) L AB: Comprehensive [place]. Panel Fast L AB: Lipid Panel L AB: PSA,Total (Free>4and<10) L AB: TSH reflex Free T4 L AB: UA ClnCatch+Micro w/rflx Cult (Collection Date & Time - 02/25/2025 07:15 AM) 3. T hyroid nodule L AB: Complete Blood Count Auto Diff (Collection Date & Time - 02/25/2025 07:15 AM) L AB: Comprehensive [place]. Panel Fast L AB: Lipid Panel L AB: PSA,Total (Free>4and<10) L AB: TSH reflex Free T4 L AB: UA ClnCatch+Micro w/rflx Cult (Collection Date & Time - 02/25/2025 07:15 AM) 4. P rostatism L AB: Complete Blood Count Auto Diff (Collection Date & Time - 02/25/2025 07:15 AM) L AB: Comprehensive [place]. Panel Fast L AB: Lipid Panel L AB: PSA,Total (Free>4and<10) L AB: TSH reflex Free T4 L AB: UA ClnCatch+Micro w/rflx Cult (Collection Date & Time - 02/25/2025 07:15 AM) 5. H ypercholesteremia L AB: Complete Blood Count Auto Diff (Collection Date & Time - 02/25/2025 07:15 AM) L AB: Comprehensive [place]. Panel Fast L AB: Lipid Panel L AB: PSA,Total (Free>4and<10) L AB: TSH reflex Free T4 L AB: UA ClnCatch+Micro w/rflx Cult (Collection Date & Time - 02/25/2025 07:15 AM) * Immunizations: Fluarix Quadrivalent - 150 : 0.5 mL (Dose No:1) (Route: Intramuscular) given by Jennifer Rubi , Office Staff on Left Deltoid * Procedure Codes: 3 6415 VENIPUNCT, ROUTINE*, 96300 FLU VACCINE NO PRESERV 3 & >, G0008 ADMN FLU VAC NO FEE SCHED SAME DAY * * The named appointment provid er may or may not be the originator of this progress note, and it is not deemed complete until electronically signed by the appointment provider. Sign off status: Pending * Provider: Rafat Vazquez MD Date: 02/25/2025 Generated for Otto disla/Mark/Savannahitting on: 02/25/2025 11:35 AM EDT
[2025-02-25 10:40] LABS: MANUAL DIFF FLAG NO
[2025-02-25 11:11] LABS: Appearance Urine Clear; Glucose Urine UA Negative (Negative); Hematocrit 42.4 % (42.0-52.0); Hemoglobin 14.0 g/dl (14.0-18.0); Imm Gran Abs Auto 0.01 X10*3/uL (0.00-0.03); Imm Gran Pct Auto 0.2 % (0.0-0.4); Lymphocytes Absolute Auto 1.6 X10*3/uL (1.2-4.9); Mean Corpuscular HGB Conc 33.0 g/dl (31.0-36.0); Mean Corpuscular Hemoglobin 31.8 pg (27.0-33.0); Mean Corpuscular Volume 96.4 fL (80.0-98.0); NRBC Abs Auto 0.000 X10*3/uL (0.0-0.012); NRBC Pct Auto 0.0 /100WBC (0.0-0.2); PH 5.0 (5.0-9.0); Platelet Count 260 X10*3/uL (160-400); Red Blood Count 4.40 X10*6/uL (4.60-5.80); Specific Gravity - Urine 1.020 (1.005-1.025); White Blood Count 5.5 X10*3/uL (4.8-10.8)
--- OUTSIDE RECORDS SUMMARY | 2025-02-25 11:34 | XMS_ITS | Clinical Summary ---
Author Organization [facility] Address [address] [place] [phone] Phone Care Team Providers Care Entry Level Electrician Name Role Phone Nader Vazquez MD Primary Care Provider Allergies No known active allergies Medications lisinopril (PRINIVIL,ZESTRI L) 10 MG tabletIndication s:hypertension Take 10 mg by mouth daily. Indications: high blood pressure Active tamsulosin (FLOMAX) 0.4 mg CapIndications:b enign prostatic hyperplasia with lower urinary tract sx Take 0.4 mg by mouth daily. Indications: enlarged prostate with urination problem Active Social History Tobacco Use Types Packs/Day Years Used Date Smoking Tobacco: Former Smokeless Tobacco: Never Alcohol Use Standard Drinks/Week Comments Yes 7 (1 standard drink = 0.6 oz pur e alcohol) Education Answer Date Recorded Are you interested in more education? Not on michelle e 09/24/2022 Are you concerned about learning? Not on file 09/24/2022 No 09/24/2022 No 09/24/2022 Digital Access Answer Date Recorded No 10/23/2022 No 10/23/2022 No 10/23/2022 Reliable internet access at home? Not on file 10/23/2022 Device with a working camera? Not on file Sex and Gender Information Value Date Recorded Sex Assigned at Not on file Legal Sex Male 2:31 PM EDT Gender Identity Not on file Sexual Orientation Not on file Last Filed Vital Signs Vital Sign Reading Time Taken Comments Blood Pressure 128/78 10/17/2020 9:27 AM EDT Pulse 81 10/17/2020 8:28 AM EDT Temperature 36.2 C (97.2 F) 10/17/2020 9:09 AM EDT Respiratory Rate 17 10/17/2020 9:27 AM EDT Oxygen Saturation 98% 10/17/2020 9:27 AM EDT Inhaled Oxygen Concentration - - Weight 68.9 kg (152 lb) 10/16/2020 10:03 AM EDT Height 167.6 cm (5' 6 ) 10/16/2020 10:03 AM EDT Body Mass Index 24.53 10/16/2020 10:03 AM EDT Plan of Treatment Health Maintenance Due Date Last Done Comments CREATININE LEVEL 1950 LIPID PANEL 1950 POTASSIUM LEVEL 1950 DEPRESSION SCREENING 1961 SMOKING Hx and SMOKELESS TOBACCO SCREENING 1962 HEPATITIS C SCREENING 1967 COLOGUARD 1994 FIT TEST 1994 FOBT 1994 SIGMOIDOSCOPY 1994 VIRTUAL COLONOSCOPY 1994 Adult Td,Tdap Booster 07/30/2016 07/30/2006 RSV VACCINE (1 - 1-dose 75+ series) 2024 INFLUENZA VACCINE (#1) 2024 , 04/12/2019 COVID-19 VACCINE (3 - 2024-2 6 season) 2025 09/02/2020, 08/05/2020 COLONOSCOPY 10/17/2030 10/17/2020 COLORECTAL CANCER SCREENING 10/17/2030 ZOSTER VACCINES Completed 07/23/2019, 05/05/2019, 06/05/2009 PNEUMOCOCCAL VACCINES (50+ years) Completed 03/28/2020, 11/05/2014, 11/05/2014 HEPATITIS A VACCINES Aged Out No long er eligible based on patient's age to complete this topic HIB VACCINES Aged Out No longer eligi ble based on patient's age to complete this topic MENINGOCOCCAL VACCINES (ACWY) Aged Out No longer eligible based on patient's age to complete this topic MENINGOCOCCAL VACCINES (B) Aged Out N o longer eligible based on patient's age to complete this topic Medical Devices Not on file Procedures Procedure Name Priority Date/Time Associated Diagnosis Comments ENDOSCOPY, COLON 10/17/2020 8:44 AM EDT from Last 3 Months or Most Recently Relevant to Health Maintenance Results * ENDOSCOPY, COLON (10/17/2020 8:44 AM EDT) Narrative Transcriptions Jeovanny Hutchins MD - 10/17/2020 8:44 AM EDT Patient Name: Chaz Carla Attending MD:: JEOVANNY HUTCHINS MD Procedure Date: 10/17/2020 8:44 AM Date of : 1950 Age: 70 Admit Type: Outpatient Gender: Male Room: [facility] Referring MD: Nader Vazquez MD Exam Type: Colonoscopy Indications: High risk colon cancer surveillance: Personalhistory of colonic polyps, Last colonoscopy: 2016 Medications: Monitored Anesthesia Care Procedure: Informed consent was obtained from the patient after discussion of the indications, limitations, alternatives, benefits, and risks of the procedure. Risks specifically discussed include but are not limited to medication reactions, missed lesions, bleeding, perforation, or the need for emergentsurgery. Throughout the procedure, the patient's bloodpressure, pulse, end-tidal CO2, and oxygen saturations were monitored continuously. The Olympus adult colonoscope CFQ 180AL #6 was introduced through the anus and advanced to the terminal ileum. The colonoscopy was performedwithout difficulty. The patient tolerated the procedurewell. The quality of the bowel preparation was good. Complications: No immediate complications. Estimated blood loss:None. Findings: The perianal and digital rectal examinations were normal. Two sessile polyps were found in the rectum and transverse colon. The polyps were diminutive insize. These polyps were removed with a cold biopsyforceps. Resection and retrieval were complete. Multiple small-mouthed diverticula were found in the sigmoid colon, descending colon and ascendingcolon. The recto-sigmoid colon, sigmoid colon, descending colon, splenic flexure, hepatic flexure, ascending colon, cecum, appendiceal orifice, ileocecal valve, ileum, rectum (on retroflexion) and ascending colon(on retroflexion) appeared normal. Impression: - Two diminutive polyps in the rectum and in the transverse colon, removed with a cold biopsyforceps. Resected and retrieved. - Diverticulosis in the sigmoid colon, in the descending colon and in the ascending colon. - The recto-sigmoid colon, sigmoid colon, descending colon, splenic flexure, hepatic flexure, ascending colon, cecum, appendiceal orifice, ileocecal valve, terminal ileum and rectum are normal. Recommendation: - Discharge patient to home. - High fiber diet. - Continue present medications. - Await pathology results. - Repeat colonoscopy in 5 years for surveillance. - You have diverticulosis so please eat a high fiber diet. JEOVANNY HUTCHINS MD 10/17/2020 9:07:33 AM This report has been signed electronically. Number of Addenda: 0 Note Initiated On: 10/17/2020 8:44 AM Procedure Code(s): --- Professional --- 18501, Colonoscopy, flexible; with biopsy, single or multiple --- Technical --- 08560, Colonoscopy, flexible; with biopsy, single or multiple Diagnosis Code(s): --- Professional --- Z86.010, Personal history of colonic polyps K62.1, Rectal polyp D12.3, Benign neoplasm of transverse colon (hepatic flexure or splenic flexure) K57.30, Diverticulosis of large intestine without perforation or abscess without bleeding --- Technical --- Z86.010, Personal history of colonic polyps K62.1, Rectal polyp D12.3, Benign neoplasm of transverse colon (hepatic flexure or splenic flexure) K57.30, Diverticulosis of large intestine without perforation or abscess without bleeding CPT copyright 2018 [employer]. All rights reserved. The codes documented in this report are preliminary and upon traffic control specialist reviewmay be revised to meet current compliance requirements. Procedure Date: 10/17/2020 8:44:13 AM [address] [place] [address] Nader Vazquez MD GI PROCEDURE ORDERABLES Edited Result - Final from Last 3 Months or Most Recently Relevant to Health Maintenance Insurance [employer] PPO MEDICARE REPLACEMENT AET[employer] O MEDICARE REPLACEMENT AET[employer] O MEDICARE REPLACEMENT [facility] MEDICARE REPLACEMENT [facility] MEDICARE REPLACEMENT [facility] MEDICARE REPLACEMENT [facility] MEDIC[facility] RE[facility] Care Teams Entry Level Electrician Relationship Specialty Start Date End Date Nader Vazquez MD [address] [place] [address] [place] [address] PCP - General Internal Medicine 08/27/20 Additional Source Comments The information contained in this document represents components of the legal health record. It is not the complete legal health record.[facility]
--- OUTSIDE RECORDS SUMMARY | 2025-02-25 11:35 | XMS_ITS | Patient Health Record ---
Author Organization Nader Vazquez MD Address [address] [place], [place] [id number] Care Team Providers Care Administrative Assistant Front Desk Name Role Phone Nader Vazquez Primary Care Provider [phone] Allergies Allergen (clinical drug ingredient) Drug/Non Drug Allergy documented on EMR Reaction Allergy Type Onset Date Status High Dose Flu shot (uncoded) throat swelling Allergy Active Results Component Value Reference Range Notes Liver Panel Reviewed date:08/18/2024 06:16:05 PM Interpretation: Performing Lab:[facility], [address] [place] [phone] Notes/Report: Bilirubin Total 0.6 0.0-1.0 mg/dL Bilirubin Direct 0.2 0.0-0.5 mg/dL Aspartate Amino Transferase 24 5-37 U/L Alanine Aminotransferase 18 0-40 U/L Total Protein 7.1 6.5-8.0 g/dL Albumin Level 4.2 3.5-5.0 g/dL Alkaline Phosphatase 43 39-117 U/L Lipid Panel with Reflex Reviewed date:08/18/2024 06:15:57 PM Interpretation: Performing Lab:[facility], [address] [place] [phone] Notes/Report: Triglycerides 62 <150 mg/dL Desirable Triglyceride: [...] low results in patients with liver disease. Complete Blood Count Auto Di ff (Not yet reviewed by provider) Interpretation: Performing Lab:[facility], [address] [place] [phone] Notes/Report: White Blood Count 5.5 4.8-10.8 X10*3/uL [...] (Not yet reviewed by provider) Interpretation: Performing Lab:[facility], [address] [place] [phone] Notes/Report: Urine, Clean Catch Color Urine Yellow Appearance Urine Clear PH 5.0 5.0-9.0 Glucose Urine UA Negative Negative mg/dL Urine Blood Negative Negative Specific [place] - Urine 1.020 1.005-1.025 Urine Protein Negative [...] Gold Reviewed date:08/17/2024 12:23:08 PM Interpretation: Performing Lab:[facility], [address] [place] [phone] Notes/Report: Chris Gracia See Note Specimen held untested for 24 hours; Call to request Chemistry testing. Reason For Referral No Information Medications Medication [...] ONE TABLET BY MOUTH ONCE DAILY Active Tamsulosin HCl 0.4 MG TAKE ONE CAPSULE B Y MOUTH ONCE DAILY for 90 Active Immunizations Vaccine Route Administration Date Status [...] 02/20/2020 Administe red Shingrix Unknown 07/23/2019 Administered Joana's PPSV23 (Pnemovax) IM Intramuscular 03/28/2020 Administered SARS-COV-2 Moderna Unknown 08/05/2020 Administered SARS-COV-2 Moderna Unknown 09/02/2020 Administered Fluarix Quadrivalent IM Intramuscular 03/26/2021 Administe red SARS-COV-2 Moderna Unknown 03/29/2021 Administered Fluarix Quadrivalent IM Intramuscular 02/22/2022 Administe red Fluarix Quadrivalent IM Intramuscular 02/17/2023 Administe red Fluarix Quadrivalent - 150 IM Intramuscular 02/20/2024 Administered Fluarix Quadrivalent - 150 IM Intramuscular 02/25/2025 Administered Social History Tobacco Use: Social History [...] Problem Status W/U Status Risk Notes Problem 466935846 Thyroid nodule (E04.1) Active confirm ed Problem 10704837 Prostatism (N40.0) Active confirmed Problem 45310077 Essential hypert ension (I10) Active confirmed Problem 486849655 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) Active confirmed Problem 40107867 Hypercholesterem ia (E78.00) Active confirmed Vital Signs Blood pressure diastolic 70 mm Hg 09/13/2024 vicky ght is up 3 pounds since 02-27-24 Height 67 in 09/13/2024 weight is up 3 pounds since 02-27-24 Blood pressure systolic 162 mm Hg 09/13/2024 francis ht is up 3 pounds since 02-27-24 Weight 168 lbs 09/13/2024 weight is up 3 pounds since 02-27-24 BMI 26.31 kg/m2 09/13/2024 weight is up 3 pounds since 02-27-24 Encounters Encounter Location Date Provider Diagnosis Nader Vazquez MD [address] [phone] 08/17/2024 Nader Vazquez Hypercholesteremia E 78.00 Nader Vazquez MD [address] [place] [address] [phone] 02/25/2025 Nader Vazquez Blood tests for rout ine general physical examination Z00.00 ; Essential hypertension I10 ; Thyroid nodule E04.1 ; Prostatism N40.0 ; Hypercholesteremia E78.00 and Encounter for administration of vaccine Z23 Nader Vazquez MD [address] [place] [phone] 02/27/2024 Nader Vazquez Essential hypertensi on I10 ; Annual physical exam Z00.00 ; Hypercholesteremia E78.00 ; Prostatism N40.0 ; Colon cancer screening Z12.11 and Depression screening Z13.31 Nader Vazquez MD [address] [place] [id number] 09/13/2024 Nader Vazquez Essential hypertensi on I10 ; Heart murmur R01.1 and Hypercholesteremia E78.00 Nader Vazquez MD [address] [place] [address] [id number] 07/06/2024 Nader Vazquez Hypercholesteremia E 78.00 Assessments Encounter Date Diagnosis (ICD Code) Assessment Notes Treatment Notes Treatment Clinical Notes Section Notes 08/17/2024 Hypercholesteremia (ICD-10 - E78.00) 02/25/2025 Blood tests for routine general physical examination (ICD-10 - Z00.00) 02/25/2025 Essential hypertensi on (ICD-10 - I10) 02/27/2024 Essential hypertensi on (ICD-10 - I10) doing well, will contiue current regiment 02/27/2024 Annual physical exam (ICD-10 - Z00.00) labs reviewed and discussed with patient 09/13/2024 Essential hypertensi on (ICD-10 - I10) stable, will continue current regiment 09/13/2024 Heart murmur (ICD-10 - R01.1) pending diagnotic testing 07/06/2024 Hypercholesteremia (ICD-10 - E78.00) 02/25/2025 Thyroid nodule (ICD- 10 - E04.1) 02/27/2024 Hypercholesteremia (ICD-10 - E78.00) well controlled, will continue current regiment 09/13/2024 Hypercholesteremia (ICD-10 - E78.00) stabkle, will contnue current regiment 02/25/2025 Prostatism (ICD-10 - N40.0) 02/27/2024 Prostatism (ICD-10 - N40.0) stable, will continue current regiment 02/25/2025 Hypercholesteremia (ICD-10 - E78.00) 02/27/2024 Colon cancer screeni ng (ICD-10 - Z12.11) guaiac negative 02/25/2025 Encounter for administration of vaccine (ICD-10 - Z23) 02/27/2024 Depression screening (ICD-10 - Z13.31) negative screen Plan Of Treatment Pending Test Test Name Order Date US CAROTID BILATERAL DOPPLER 02/22/2020 ECHO 09/13/2024 Colonoscopy, Screening 11/03/2020 Complete Blood Count Auto Diff Comprehensive [place]. Panel Fast Lipid Panel 02/25/2025 PSA,Total (Free>4and<10) 02/25/2025 TSH reflex Free T4 02/25/2025 US bladder 12/30/2020 US thyroid 03/30/2022 US thyroid 05/13/2022 CA stress test 03/26/2021 UA ClnCatch+Micro w/rflx Cult 02/25/2025 Next Appt Details Provider Name:Nader guevara, 03/04/2025 09:30:00 AM, [address] [place] [address], [address], [place], [place], [phone], Insurance Providers Payer Name Payer Address Payer Phone Subscriber Number Group Number Insured Name Patient Relationship to Insured Coverage Start Date Coverage End Date [employer] [address] ROSI LEA [id number] [id number] Carla Chaz Self - patient is the insured Medical (General) History Medical History History ICD Code colonoscopy 2013. needs repe at in 5 years; Colonoscopy 06/04/2016 - repeat in 2020 (was done [facility])
--- OUTSIDE RECORDS SUMMARY | 2025-02-25 11:35 | XMS_ITS | Encounter Summary ---
Author Organization [facility] Address [address] [place] [phone] Phone Care Team Providers Care Invasive Manager Name Role Phone Nader Vazquez MD Primary Care Provider Encounter Details Date Type Department Care Team (Late st Contact Info) Description 10/17/2020 Procedure Pass [facility] Endoscopy Admitting Dept Virtual Department [address] [place] [address] Social History Tobacco Use Types Packs/Day Years Used Date Smoking Tobacco: Former Smokeless Tobacco: Never Alcohol Use Standard Drinks/Week Comments Yes 7 (1 standard drink = 0.6 oz pur e alcohol) Sex and Gender Information Value Date Recorded Sex Assigned at Not on file Legal Sex Male 2:31 PM EDT Gender Identity Not on file Sexual Orientation Not on file documented as of this encounter Plan of Treatment Not on file documented as of this encounter Visit Diagnoses Not on filedocumented in this encounter Care Teams Invasive Manager Relationship Specialty Start Date End Date Nader Vazquez MD [address] [place] [address] [place] [address] PCP - General Internal Medicine 08/27/20 documented as of this encounter Additional Source Comments The information contained in this document represents components of the legal health record. It is not the complete legal health record.[facility]
[2025-02-25 11:37] LABS: Alanine Aminotransferase 20 U/L (0-40); Albumin Level 4.7 g/dL (3.5-5.0); Alkaline Phosphatase 46 U/L (39-117); Anion Gap 12 (12-20); Aspartate Amino Transferase 28 U/L (5-37); Blood Urea Nitrogen 19 mg/dL (9-16); Calcium 9.6 mg/dL (8.4-10.2); Carbon Dioxide 26 mmol/L (22-29); Chloride 108 mmol/L (96-108); Cholesterol 198 mg/dL (<200); Estimated Glomerular Filt Rate > 60; HDL Cholesterol 97 mg/dL (>40); Potassium 4.9 mmol/L (3.3-5.1); Sodium 141 mmol/L (135-145); Total Protein 7.2 g/dL (6.5-8.0); Triglycerides 63 mg/dL (<150)
[2025-02-25 11:38] LABS: PSA,Total (Free>4and<10) 0.50 ng/mL (0.00-4.00)
[2025-02-25 12:20] LABS: Free T4 (Free Thyroxine) 0.95 ng/dL (0.71-1.85)
== END 2025-02-25 10:22 | disposition home or self-care (01) ==
LOC: HO.LNP 10:21
PROVIDERS: Visit Provider Internal Medicine
DX: Z00.00 Encounter for general adult medical examination without abnormal findings (principal); E04.1 Nontoxic single thyroid nodule; N40.0 Benign prostatic hyperplasia without lower urinary tract symptoms; E78.00 Pure hypercholesterolemia, unspecified; I10 Essential (primary) hypertension; Z12.5 Encounter for screening for malignant neoplasm of prostate
CPT/HCPCS: 80053; 80061; 81001; 84153; 84439; 84443; 85025